=== PATIENT | female | born 1950 | race Caucasian/White ===

== ENCOUNTER 2022-04-15 09:44 | Outpatient (REF) | payer OTHER, SELFPAY ==
[2022-04-15 12:03] LABS: Hematocrit 36.7 % (37.0-47.0); Hemoglobin 12.6 g/dl (12.0-16.0); Mean Corpuscular HGB Conc 34.3 g/dl (31.0-35.0); Mean Corpuscular Hemoglobin 31.3 pg (27.0-33.0); Mean Corpuscular Volume 91.3 fL (80.0-98.0); Mean Platelet Volume 10.4 fL (9.4-12.3); Platelet Count 271 X10*3/uL (160-400); Red Blood Count 4.02 X10*6/uL (4.20-5.50); Red Cell Distribution Width 12.9 % (11.0-16.0); White Blood Count 6.8 X10*3/uL (4.8-10.8)
[2022-04-15 12:23] LABS: Alanine Aminotransferase 55 U/L (0-31); Albumin Level 4.2 g/dL (3.5-5.0); Alkaline Phosphatase 70 U/L (39-117); Anion Gap 15 (12-20); Aspartate Amino Transferase 44 U/L (5-31); Bilirubin Total 1.1 mg/dL (0.0-1.0); Blood Urea Nitrogen 13 mg/dL (9-16); Calcium 9.9 mg/dL (8.4-10.2); Carbon Dioxide 26 mmol/L (22-29); Chloride 103 mmol/L (96-108); Cholesterol 196 mg/dL; Estimated Glomerular Filt Rate > 60; Glucose Fasting 126 mg/dL (60-99); HDL Cholesterol 51 mg/dL; LDL Cholesterol Calculated 123 mg/dl; Potassium 3.2 mmol/L (3.3-5.1); Sodium 141 mmol/L (135-145); Total Protein 7.3 g/dL (6.5-8.0); Triglycerides 114 mg/dL
[2022-04-15 12:36] LABS: TSH reflex Free T4 1.17 uIU/mL (0.32-4.0)
== END 2022-04-15 09:45 | disposition home or self-care (01) ==
LOC: HO.WFDLDS 09:44
PROVIDERS: Visit Provider Hospitalist
DX: Z00.00 Encounter for general adult medical examination without abnormal findings (principal); E04.1 Nontoxic single thyroid nodule
CPT/HCPCS: 36415; 80053; 80061; 84443; 85027

== ENCOUNTER 2022-08-04 16:25 | Outpatient (REF) | payer OTHER, SELFPAY ==
--- NOTE | ~2022-08-04 | US_ITS ---
EXAMINATION: US THYROID CLINICAL INFORMATION: Nontoxic single thyroid nodule. COMPARISON: None. TECHNIQUE: Linear transducer grayscale and color Doppler examination with attention to the region of the thyroid. FINDINGS: SIZE: Measurements of the thyroid lobes and nodules are given in sagittal, anteroposterior and transverse dimensions respectively. Right Thyroid Lobe: 5.8 x 2.7 x 2.1 cm, volume 17.2 mL. Parenchyma: The gland echotexture is heterogeneous. Thyroid vascularity is normal. Left Thyroid Lobe: 4.1 x 1.9 x 1.7 cm, volume 6.9 mL. Parenchyma: The gland echotexture is heterogeneous. Thyroid vascularity is normal. Isthmus: 0.3 cm in maximum AP dimension. Estimated total number of nodules greater than or equal to 1 cm: 1. Drying Equipment Operator nodules are described as follows: 1. Location: Right upper pole. Size: 2.1 x 1.4 x 1.5 cm, volume 2.4 mL. Nodule characteristics: Composition: 2 Echogenicity: 1 Shape: 0 Margins: 0 Echogenic Foci: 0 ACR TI-RADS total points: 3 ACR TI-RADS category: 3 No additional nodules seen. NODES: No lymphadenopathy is seen in the tissue surrounding the thyroid gland. US/US thyroid IMPRESSION: 1. Solitary nodule upper pole right lobe, nonsuspicious. 2. Enlarged and heterogeneous right thyroid lobe. Heterogeneous left thyroid lobe. ACR TI-RADS RECOMMENDATION REFERENCE: Ultrasound-guided fine-needle aspiration, followup ultrasound, no further follow up. * TR1 (0 point) and TR 2 (2 points): No FNA or follow up * TR3 (3 points): FNA if more than or equal to 2.5 cm in maximum dimension, followup ultrasound in 1, 3 and 5 years if 1.5 to 2.4 cm in maximum dimension. * TR4 (4-6 points): FNA if more than or equal to 1.5 cm in maximum dimension, followup ultrasound in 1, 2, 3 and 5 years if 1 to 1.4 cm in maximum dimension. * TR5 (more than or equal to 7 points): FNA if more than or equal to 1 cm in maximum dimension, followup ultrasound every year for 5 years if 0.5 to 0.9 cm in maximum dimension. * TR3, TR4 or TR5 nodules that are below the size threshold for follow up receive no follow up.
== END 2022-08-04 16:26 | disposition home or self-care (01) ==
LOC: HO.US 16:25
PROVIDERS: PCP Hospitalist; Visit Provider Hospitalist
DX: E04.1 Nontoxic single thyroid nodule (principal)
CPT/HCPCS: 76536

== ENCOUNTER 2022-09-01 08:43 | Outpatient (REF) | payer MEDICARE, SELFPAY ==
[2022-09-01 11:19] LABS: Free T4 (Free Thyroxine) 1.16 ng/dL (0.71-1.85); Thyroid Stimulating Hormone 0.79 uIU/mL (0.32-4.0)
== END 2022-09-01 08:44 | disposition home or self-care (01) ==
LOC: HO.LAB 08:43
PROVIDERS: PCP Hospitalist; Visit Provider Internal Medicine
DX: E04.1 Nontoxic single thyroid nodule (principal)
CPT/HCPCS: 36415; 84439; 84443; 99202

== ENCOUNTER 2023-02-12 08:57 | Outpatient (REF) | payer MEDICARE, SELFPAY ==
--- NOTE | 2023-02-12 09:25 | P.BOP_ITS ---
Brief Operative Note Date of Service: 02/12/23 Pre-op diagnosis: Goiter Procedure: EXAMINATION: US THYROID CLINICAL INFORMATION: Multinodular Thyroid COMPARISON: Prior TECHNIQUE: Linear transducer mcleod-scale and color Doppler examination with attention to the region of the thyroid. FINDINGS: SIZE: Measurements of the thyroid lobes and nodules are given in sagittal, anteroposterior and transverse dimensions respectively. Right Thyroid Lobe: 2.0 x 4.04 x 2.45 cm, volume 10.4 mL. Parenchyma: The gland echotexture is diffusely heterogenous. Thyroid vascularity is mildly increased. Left Thyroid Lobe: 5.4 x 2.8 x 3.2 cm, volume 25.6 mL. Parenchyma: The gland echotexture is diffusely heterogenous. Thyroid vascularity is mildly increased. Isthmus: 0.4 cm in maximum AP dimension. There are no nodules visualized. The gland is diffusely heterogenous with multiple pseudnodules, but no true nodules identified. NODES: No lymphadenopathy is seen in the tissue surrounding the thyroid gland. Surgeon: Zoe El, DO Was an Pipe Finisher used for this Procedure?: No Estimated blood loss (mL): 0
== END 2023-02-12 08:58 | disposition home or self-care (01) ==
LOC: HO.US 08:57
PROVIDERS: Visit Provider Internal Medicine
DX: E04.1 Nontoxic single thyroid nodule (principal)
CPT/HCPCS: 76536

== ENCOUNTER → 2023-02-12 08:57 | Outpatient (BNV) | payer MEDICARE, SELFPAY | PROVIDERS: Visit Provider Internal Medicine | DX: E04.2 Nontoxic multinodular goiter (principal) | CPT/HCPCS: 76536 ==

== ENCOUNTER 2023-02-25 08:35 | Outpatient (AMB) | payer MEDICARE, SELFPAY ==
--- NOTE | 2023-02-25 08:35 | MHC.OFFVIS ---
Intake Intake Visit Reasons: FNA Results Allergies lisinopril Adverse Reaction (Mild, Verified 02/25/23 08:59) Cough Medication List - Last Reconciled 02/25/23 by Zoe El DO albuterol sulfate 90 mcg/actuation 2 puffs inhalation Q4-6H PRN 1 month cetirizine 10 mg PO DAILY fluoxetine 20 mg PO BID hydroxyzine HCl 25 mg PO TID PRN 30 days waeevqlbbu-yxfpygvsk-pponmeyvl 40-5-25 mg 1 tab PO DAILY HPI HPI Comments History of Present Illness Details 71 YO F with a recently diagnosed thyroid nodule who is seen in consultation for multinodular thyroid at the request of PCP. Was initially diagnosed with multinodular thyroid in Jul 2022 with thyroid US revealing what was read as a solitary 2.1 cm RUP nodule. This US was completed because she felt her neck was looking slightly enlarged. I repeated her thyroid US myself 02/12/2023 and this revealed a diffusely heterogenous thyroid gland with no true nodules, only pseudonodules. She currently denies any dysphagia or vocal hoarseness. She denies any compressive symptoms. She denies any symptoms of hyper or hypothyroidism. Denies any history of head or neck irradiation. Denies any family history of thyroid cancer. 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 No indication for FNA biopsy at this time. She will F/U with her PCP from here on, but if a need for Endocrine evaluation arises in the future we would be happy to see her back. All of her questions were answered. She is in agreement with this plan of care. I spent 20 minutes in reviewing the record, seeing the patient and documenting in the medical record, including 5 minutes on the phone with the Patient. Telehealth Telehealth Location of provider rendering services: practice address Location of patient: address on file Patient Identification confirmed using: Name, : Yes Telehealth method: voice only Patient verbally consented to treatment: Yes Patient verbally consented to billing insurance company: Yes Patient informed of any privacy concerns related to visit: Yes Coding Level of Care Code Tele Est Pt Level 3 (41960) Diagnoses Thyroid nodule E04.1
== END 2023-02-25 09:03 | disposition home or self-care (01) ==
LOC: HO.ENCR 08:35
PROVIDERS: PCP Hospitalist; Visit Provider Internal Medicine
DX: E04.1 Nontoxic single thyroid nodule (principal)
CPT/HCPCS: G2252

== ENCOUNTER → 2023-02-25 08:35 | Outpatient (BNVA) | payer MEDICARE, SELFPAY | PROVIDERS: PCP Hospitalist; Visit Provider Internal Medicine ==

== ENCOUNTER 2023-03-27 13:55 | Outpatient (REF) | payer MEDICARE, SELFPAY ==
[2023-03-27 14:54] LABS: Hematocrit 37.8 % (37.0-47.0); Mean Corpuscular HGB Conc 34.4 g/dl (31.0-35.0); Mean Corpuscular Hemoglobin 31.5 pg (27.0-33.0); Mean Corpuscular Volume 91.5 fL (80.0-98.0); Mean Platelet Volume 10.6 fL (9.4-12.3); Platelet Count 282 X10*3/uL (160-400); Red Blood Count 4.13 X10*6/uL (4.20-5.50); Red Cell Distribution Width 12.8 % (11.0-16.0); White Blood Count 9.8 X10*3/uL (4.8-10.8)
[2023-03-27 16:18] LABS: Alanine Aminotransferase 19 U/L (0-31); Albumin Level 4.2 g/dL (3.5-5.0); Alkaline Phosphatase 72 U/L (39-117); Anion Gap 16 (12-20); Aspartate Amino Transferase 16 U/L (5-31); Bilirubin Total 0.9 mg/dL (0.0-1.0); Blood Urea Nitrogen 22 mg/dL (9-16); Calcium 9.9 mg/dL (8.4-10.2); Carbon Dioxide 23 mmol/L (22-29); Chloride 105 mmol/L (96-108); Estimated Glomerular Filt Rate > 60; Glucose Fasting 94 mg/dL (60-99); Potassium 2.7 mmol/L (3.3-5.1); Sodium 141 mmol/L (135-145)
[2023-03-30 12:04] LABS: TS Negative Control Passed; TS Panel A 0; TS Panel B 0; TS Positive Control Passed; TSpotTB Negative (Negative)
== END 2023-03-27 13:56 | disposition home or self-care (01) ==
LOC: HO.LAB 13:55
PROVIDERS: PCP Nurse Practitioner Family; Visit Provider Nurse Practitioner Family
DX: Z00.00 Encounter for general adult medical examination without abnormal findings (principal); Z11.1 Encounter for screening for respiratory tuberculosis; I10 Essential (primary) hypertension
CPT/HCPCS: 36415; 80053; 85027; 86481

== ENCOUNTER 2023-04-24 10:46 | Outpatient (AMB) | payer MEDICARE, SELFPAY ==
[2023-04-24 10:57] VITALS: BP 124/64; PULSE 83; RESP 12; TEMP 36.2; O2SAT 99; BMI 32.1
--- NOTE | 2023-04-24 10:57 | MHC.PC.OV ---
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 Patient states that she was told that she would get help to get a piece of hearing aid out her ear. Patient states that she has been having problem with her right heel and has been feeling pain. Patient states that she would like refill on olmesartan. Patient would like to change fluoxetine to another alternative. Microarray Analyst Required: No Accompanied by: Self / Same As Patient Allergies lisinopril Adverse Reaction (Mild, Verified 04/24/23 11:08) Cough Tobacco use date assessed: 04/24/23 Fall risk assessment: No Falls in past year Last assessed Fall Risk: 04/24/23 Dental Screening Dental Screen Date: 04/24/23 Did you have a dental visit in the last 12 months?: No Did you have a dental problem in the last 6 months where you did not have access to dental care?: Yes Was dental information given to patient?: Yes HPI HPI Comments History of Present Illness Details 72-year-old female presents for anxiety and depression follow-up. She is on fluoxetine and hydroxyzine. Her hydroxyzine have been on hold since earlier this month due to concerns for interaction with potassium chloride was prescribed for recently low potassium of 2.7. 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 She has been taking fluoxetine as prescribed, however, she states the medication is no longer as effective. She notes she has been taking fluoxetine 40 mg daily in the morning. She has a plastic tip of hearing aid lodged in her right ear. She states she wants for hearing test for new hearing aids and was told she needs to get the object removed from a ear before a hearing test can not be performed. She requests removal of the object from her ear. She notes that her last colonoscopy was almost 9 years ago: Normal. She declines colonoscopy in but is willing to do Cologuard test. 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 1. Little interest or pleasure in doing things: more than half the days 2. Feeling down, depressed, or hopeless: more than half the days 3. Trouble falling or staying asleep, or sleeping too much: not at all 4. Feeling tired or having little energy: not at all 5. Poor appetite or overeating: not at all 6. Feeling bad about yourself - or that you are a failure or have let yourself or your family down: more than half the days 7. Trouble concentrating on things, such as reading the newspaper or watching television: more than half the days 8. Moving or speaking so slowly that other people could have noticed. Or the opposite - being so fidgety or restless that you have been moving around a lot more than usual: not at all 9. Thoughts that you would be better off or of hurting yourself in some way: not at all Total score: 8 Depression Screening Interpretation: Positive Depression Screening Follow-up: Existing condition, In treatment, Change in Medication and Community Mental Health Worker F/U Source: Developed by Drs. Lucho London, Randa Keith, Bassem Bonds and colleagues, with an educational vianca from [employer] AUDIT C Alcohol Use Questionnaire (AUDIT-C) 1. How often do you have a drink containing alcohol?: Never 3. How often do you have six or more drinks on one occasion?: Never Total Score: 0 CORIE-7 AMB Questionnaire CORIE-7 Date CORIE - 7 assessed: 04/24/23 Feeling nervous, anxious, or on edge: 2 = More than half the days Not being able to stop or control worryin = More than half the days Worrying too much about different things: 2 = More than half the days Trouble relaxin = More than half the days Being so restless that it is hard to sit still: 2 = More than half the days Becoming easily annoyed or irritable: 0 = Not at all Feeling afraid as if something awful might happen: 2 = More than half the days Total COIRE-7 score (0-4 normal; 5-9 mild; 10-14 moderate; 15-21 severe): 12 Source: Developed by Drs. Lucho London, Randa Keith, Bassem Bonds and colleagues, with an educational vianca from [employer] ACT Questionnaire In the past 4 weeks, how much of the time did your asthma keep you from getting as much done at work, school or at home?: None of the time During the past 4 weeks, how often have you had shortness of breath?: Not at all During the past 4 weeks, how often did your asthma symptoms wake you up at night or earlier than usual in the morning?: Not at all During the past 4 weeks, how often have you had to use your rescue inhaler or nebulizer medication?: Not at all How would you rate your asthma control during the past 4 weeks?: Well controlled Score: 24 Review of Systems Const Details: Const Denies chills, Denies fatigue, Denies fever(s), Denies headache(s) and Denies weakness ENT Denies dizziness and Denies headache(s) Card Denies chest pain, Denies lightheadedness, Denies dyspnea and Denies other (Palpitations) Resp Denies cough, Denies dyspnea, Denies wheezing and Denies other ( shortness of breath) GI Denies abdominal pain, Denies melena, Denies hematochezia, Denies change in bowel habits, Denies dyspepsia and Denies nausea Denies hematuria and Denies dysuria Musc Denies abnormal gait, Denies myalgias, Denies arthralgias, Denies numbness and Denies tingling Skin/Breast Denies rash, Denies unusual bruising and Denies wounds Neuro Denies abnormal gait, Denies dizziness, Denies headache(s), Denies memory loss, Denies numbness, Denies Sensory deficit (Neuro), Denies tingling and Denies weakness Psych Reports anxiety, Reports depression, Denies memory loss Endo Denies cold intolerance, Denies fatigue, Denies heat intolerance, Denies polydipsia and Denies polyuria Aller/Immun Denies wheezing Physical exam (Primary Care) Vital Signs: Last Vital Signs Temp 97.2 F 04/24/23 10:57 Pulse 83 04/24/23 10:57 Resp 12 04/24/23 10:57 BP 124/64 04/24/23 10:57 Pulse Ox 99 04/24/23 10:57 Oxygen Delivery Method Room Air 04/24/23 10:57 BMI result Body Mass Index 32.1 Tobacco/Smoking Status: Tobacco use Status Tobacco use date assessed 04/24/23 04/24/23 11:12 Patient Tobacco Use Status Never used Tobacco 04/24/23 11:12 e-Cigarette/Vaping Use Never Used 04/24/23 11:12 PHQ-9: PHQ-9 Score PHQ-9: Total score 8 04/24/23 11:22 Depression Screening Interpretation: Positive Depression Screening Follow-up: Existing condition, In treatment, Change in Medication and Community Mental Health Worker F/U Const Other: General: no acute distress and well developed Nutritional Appearance: well nourished Orientation/consciousness: patient oriented x3 HENMT Head is normocephalic Left ear canal and TM is normal. Small orange plastic object noted in the right ear canal, obstructing the TM, no erythema effusion, or overt infection Nasal turbinates and oropharynx are pink and moist Sinuses are nontender with palpation No auricular or cervical lymphadenopathy Eyes General: appearance normal, both eyes and all related structures Pupils: Equal, round and reactive pupils present EOM: EOMs intact bilaterally Resp Effort & Inspection: normal respiratory effort Auscultation: clear to auscultation bilaterally Cardio Rate: regular rate Rhythm: regular rhythm Heart sounds: S1 normal heart sound present, S2 normal heart sound present, no gallops, no murmurs and no rubs GI Palpation (GI): No Abdominal aortic bruit present, Soft to palpation, nontender, No hepatosplenomegaly present and No Rebound tenderness present Auscultation: normal bowel sounds General: Yes no CVA tenderness Back/Spine/Pelvis Back: no CVA tenderness Cervical Spine: cervical ROM normal and No Cervical spine tenderness Thoracic/Lumbar Spine: thoraco-lumbar ROM normal, No pain with thoraco-lumbar ROM, No thoracic spinal tenderness and No lumbar spinal tenderness Extrem General: Yes normal to inspection, No edema and No calf tenderness Skin General: warm and dry. Normal skin color. Normal skin turgor Lesions: no lesions Rashes: no rashes Trauma: no lacerations or abrasions Wounds: no wounds Nails: normal Neuro General: patient oriented x3, gait normal and no focal neuro deficit Cranial nerves: Yes Equal, round and reactive pupils present Cognition (Neuro): normal cognition Gait exam (Neuro): Normal gait present Sensory Exam: No Sensory deficit (Neuro) Psych Appearance: grossly normal Affect: normal affect Attitude: cooperative Thought process: Normal thought process present Assessment and Plan Assessment & Plan (1) Anxiety with depression: Code(s): F41.8 - Other specified anxiety disorders Plan: PHQ-9 and CORIE-7 scores revealed mild depression and moderate anxiety respectively Fluoxetine increased to 30 mg twice daily. Advised to take in the morning and afternoon The community navigator informed to refer patient for behavioral therapy Routine exercise encouraged Follow-up in 2 weeks or return sooner with worsening or new symptoms Verbalized understanding and agreed with treatment plan. (2) Hypokalemia: Code(s): E87.6 - Hypokalemia Plan: Recent potassium was low, 2.7. She was prescribed potassium chloride which she has been taking since earlier this month Will recheck potassium level today Advised to continue to take potassium chloride as prescribed Will review lab results and make changes to her care plan if warranted Verbalized understanding and agreed with treatment plan. (3) Hypertension: Code(s): I10 - Essential (primary) hypertension Plan: Blood pressure is 124/64, within goal of less than 140/90 Continue to take pqhsvxomqk-uilnfftlvh-dxotuwdnwqvcqltkbaj as prescribed Low-sodium diet encouraged Will continue to monitor Verbalized understanding and agreed with the treatment plan. (4) Foreign body of ear, right: Code(s): T16.1XXA - Foreign body in right ear, initial encounter Qualifiers: Encounter type: subsequent encounter Qualified Code(s): T16.1XXD - Foreign body in right ear, subsequent encounter Plan: Small orange plastic object noted in the right ear canal, obstructing the TM, no erythema effusion, or overt infection; appears to be the plastic covering of the hearing aid tip. Advised to call and schedule an appointment for hearing test so she can be fitted for new hearing aids Return with symptoms or concerns Verbalized understanding and agreed with treatment plan. (5) At risk of fracture due to osteoporosis: Code(s): M81.0 - Age-related osteoporosis without current pathological fracture; Z91.89 - Other specified personal risk factors, not elsewhere classified Plan: She states that the last bone density scan was over 2 years ago: Normal DEXA scan ordered. Patient will be notified to schedule an appointment for the procedure. (6) Colon cancer screening: Code(s): Z12.11 - Encounter for screening for malignant neoplasm of colon Plan: She notes that her last colonoscopy was almost 9 years ago: Normal. She declines colonoscopy in but is willing to do Cologuard test. Cologuard test ordered. Patient informed that she would receive the test kit at home with instructions to process and sent to the lab. She verbalized understanding and agreed with the plan. Orders: Orders Potassium Today E87.6 - Hypokalemia XR DEXA axial skeleton Today M81.0 - Age-related osteoporosis without current pathological fracture, Z12.11 - Encounter for screening for malignant neoplasm of colon, Z91.89 - Other specified personal risk factors, not elsewhere classified Referrals Nurse Navigator Referral F41.8 - Other specified anxiety disorders Cologuard Test Z12.11 - Encounter for screening for malignant neoplasm of colon Medications: New fluoxetine administer in the morning and at noon/midday. Take with fluoxetine 20 mg in the morning and afternoon to equal 30 mg twice daily. 10 mg PO BID 30 days 60 caps 3RF Coding Level of Care Code Est Pt Level 3 (06600) Diagnoses Anxiety with depression F41.8 Hypokalemia E87.6 Hypertension I10 Foreign body of right ear, subsequent encounter T16.1XXD Encounter type: subsequent encounter At risk of fracture due to osteoporosis M81.0; Z91.89 Colon cancer screening Z12.11
== END 2023-04-24 13:25 | disposition home or self-care (01) ==
PROVIDERS: PCP Nurse Practitioner Family; Visit Provider Nurse Practitioner Family
DX: I10 Essential (primary) hypertension (principal); F41.8 Other specified anxiety disorders; E87.6 Hypokalemia; T16.1XXD Foreign body in right ear, subsequent encounter; M81.0 Age-related osteoporosis without current pathological fracture; Z91.89 Other specified personal risk factors, not elsewhere classified; Z12.11 Encounter for screening for malignant neoplasm of colon
CPT/HCPCS: 99214

== ENCOUNTER 2023-04-24 12:12 | Outpatient (REF) | payer MEDICARE, SELFPAY ==
[2023-04-24 14:49] LABS: Potassium 4.1 mmol/L (3.3-5.1)
== END 2023-04-24 12:13 | disposition home or self-care (01) ==
LOC: HO.WFDLDS 12:12
PROVIDERS: Visit Provider Nurse Practitioner Family
DX: E87.6 Hypokalemia (principal)
CPT/HCPCS: 36415; 84132

== ENCOUNTER 2023-05-07 13:43 | Outpatient (REF) | payer MEDICARE, SELFPAY ==
--- NOTE | ~2023-05-07 | MM_ITS ---
EXAMINATION: BONE DENSITOMETRY CLINICAL INDICATION: Age-related osteoporosis without current pathological fracture. COMPARISON: This is the patient's baseline examination. TECHNIQUE: Using a [employer] DXA System (software version: 13.1) manufactured by [employer], dual-energy x-ray absorptiometry was performed of the lumbar spine and left hip. The images are of good technical quality. Summary results are attached. FINDINGS: LEFT FEMUR, NECK: BMD 1.074 g/cm2, Z-score 1.8, T-score 0.3, normal. LEFT FEMUR, TOTAL: BMD 1.194 g/cm2, Z-score 2.8, T-score 1.5, normal. AP SPINE L1-L4 (excluding L3): The data of L1-L4 has been changed to exclude the L3 vertebral body, because at this level may cause overestimation of lumbar spine density. BMD 1.365 g/cm2, Z-score 2.8, T-score 1.6, normal. IDENTIFIED RISK FACTORS: Menopause, hysterectomy, history of fracture (adult). HISTORY OF FRACTURE: Wrist. MEDICATIONS: Calcium supplements or multivitamin, vitamin D. MM/XR DEXA axial skeleton IMPRESSION: 1. DIAGNOSIS: Normal bone density based on the lowest T-score value of 0.3 in the femoral neck applying World Health Organization criteria. 2. 10-YEAR FRACTURE RISK PREDICTION, FRAX: According to the guidelines, FRAX calculation should only be performed on patients in the osteopenia bone density category. Therefore, FRAX was not performed on this patient. 3. Treatment Recommendations: NOF guidelines recommend consideration for treatment in postmenopausal women and men age 50 and older presenting with the following: -A hip or vertebral (clinical or morphometric) fracture. -T-score less than or equal to -2.5 at the femoral neck or spine after appropriate evaluation to exclude secondary causes. -Low bone mass at the hip or spine and a 10-year fracture probability by FRAX of greater than or equal to 3% for hip fracture or greater than or equal to 20% for major osteoporotic fracture based on the [place] adapted WHO algorithm. 4. Other Recommendations: All treatment decisions require clinical judgment and consideration of individual patient factors, including patient preferences, comorbidities, previous drug use, risk factors not captured in the FRAX model (e.g. frailty, falls, vitamin D deficiency, increased bone turnover, interval significant decline in bone density) and possible under or overestimation of fracture risk by FRAX. FUTURE SCAN RECOMMENDATION: People with diagnosed cases of osteoporosis or at high risk for fracture should have regular bone mineral density tests. For patients eligible for Medicare, routine testing is allowed once every 2 years. The testing frequency can be increased to one year for patients who have rapidly progressing disease, those who are receiving or discontinuing medical therapy to restore bone mass, or have additional risk factors.
== END 2023-05-07 13:44 | disposition home or self-care (01) ==
LOC: HO.MAMMO 13:43
PROVIDERS: PCP Nurse Practitioner Family; Visit Provider Nurse Practitioner Family
DX: Z13.820 Encounter for screening for osteoporosis (principal); M81.0 Age-related osteoporosis without current pathological fracture; Z91.89 Other specified personal risk factors, not elsewhere classified; Z78.0 Asymptomatic menopausal state
CPT/HCPCS: 77080

== ENCOUNTER 2023-05-08 15:00 | Outpatient (AMB) | payer MEDICARE, SELFPAY ==
[2023-05-08 15:06] VITALS: BP 124/60; PULSE 78; RESP 13; TEMP 36.5; O2SAT 98; BMI 31.8
--- NOTE | 2023-05-08 15:06 | A.OFFPC_ITS ---
Vital Signs 05/08/23 15:06 Height 5 ft 3 in Weight 179 lb 6 oz BMI 31.8 BP 124/60 Blood Pressure Location Lt brachial Position Sitting Respiration 13 Pulse 78 Pulse Source Pulse Oximeter Temp 97.7 F Temp Source Temporal Artery Scan Pulse Oximetry (%) 98 Oxygen Delivery Method Room Air Intake Visit Reasons: 2 wks anxiety, depression Intake Note: Patient would like to go over bone density if there is time. Case Supervisor Required: No Accompanied by: Self / Same As Patient Allergies lisinopril Adverse Reaction (Mild, Verified 05/08/23 15:23) Cough Medication List - Last Reconciled 05/08/23 by Jignesh He CNP albuterol sulfate 90 mcg/actuation 2 puffs inhalation Q4-6H PRN 1 month cetirizine 10 mg PO DAILY fluoxetine 20 mg PO BID fluoxetine 10 mg PO BID 30 days hydroxyzine HCl 25 mg PO TID PRN 30 days yamrwbelsu-tnwtqtnuw-qhwgyyjws 40-5-25 mg 1 tab PO DAILY potassium chloride ER 20 mEq PO DAILY 30 days Tobacco use date assessed: 04/24/23 Fall risk assessment: No Falls in past year Last assessed Fall Risk: 05/08/23 Dental Screening Dental Screen Date: 05/08/23 Did you have a dental visit in the last 12 months?: Yes Did you have a dental problem in the last 6 months where you did not have access to dental care?: No Was dental information given to patient?: Patient has dentist HPI HPI Comments History of Present Illness Details 72-year-old female presents for anxiety and depression follow-up. She was evaluated in the office 2 weeks ago for anxiety and depression. She reported worsened depression. She noted a fluoxetine 40 mg daily in the morning was no longer effective. Her hydroxyzine was on hold due to concerns for interaction with potassium chloride prescribed for low potassium. Fluoxetine was increased to 30 mg in the morning and 30 mg in the afternoon. She met with the community navigator who referred her to a therapist. She notes she has been taking fluoxetine as prescribed with significant improvement of her mood and anxiety. She states that her significant other he is currently [facility] a fall. She states that he is currently in a safe place and that she does not currently feel burdened to care for him. She states she did not establish care with a therapist and currently does not need one. She denies acute symptoms at this time. She notes that her last mammogram was several years ago: normal. 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 1. Little interest or pleasure in doing things: not at all 2. Feeling down, depressed, or hopeless: not at all 3. Trouble falling or staying asleep, or sleeping too much: not at all 4. Feeling tired or having little energy: not at all 5. Poor appetite or overeating: not at all 6. Feeling bad about yourself - or that you are a failure or have let yourself or your family down: not at all 7. Trouble concentrating on things, such as reading the newspaper or watching television: not at all 8. Moving or speaking so slowly that other people could have noticed. Or the opposite - being so fidgety or restless that you have been moving around a lot more than usual: not at all 9. Thoughts that you would be better off or of hurting yourself in some way: not at all Total score: 0 Depression Screening Interpretation: Negative Depression Screening Done: Yes Source: Developed by Drs. Lucho London, Randa Keith, Bassem Bonds and colleagues, with an educational vianca from [employer]. CORIE-7 AMB Questionnaire CORIE-7 Date CORIE - 7 assessed: 05/08/23 Feeling nervous, anxious, or on edge: 0 = Not at all Not being able to stop or control worryin = Not at all Worrying too much about different things: 0 = Not at all Trouble relaxin = Not at all Being so restless that it is hard to sit still: 0 = Not at all Becoming easily annoyed or irritable: 0 = Not at all Feeling afraid as if something awful might happen: 0 = Not at all Total CORIE-7 score (0-4 normal; 5-9 mild; 10-14 moderate; 15-21 severe): 0 Source: Developed by Drs. Lucho London, Randa Keith, Bassem Bonds and colleagues, with an educational vianca from [employer]. Review of Systems Const Details: Const Denies chills, Denies fatigue, Denies fever(s), Denies headache(s) and Denies weakness ENT Denies dizziness and Denies headache(s) Card Denies chest pain, Denies lightheadedness, Denies dyspnea and Denies other (Palpitations) Resp Denies cough, Denies dyspnea, Denies wheezing and Denies other ( shortness of breath) GI Denies abdominal pain, Denies melena, Denies hematochezia, Denies change in bowel habits, Denies dyspepsia and Denies nausea Denies hematuria and Denies dysuria Musc Denies abnormal gait, Denies myalgias, Denies arthralgias, Denies numbness and Denies tingling Skin/Breast Denies rash, Denies unusual bruising and Denies wounds Neuro Denies abnormal gait, Denies dizziness, Denies headache(s), Denies memory loss, Denies numbness, Denies Sensory deficit (Neuro), Denies tingling and Denies weakness Psych Denies anxiety, Denies depression, Denies memory loss Endo Denies cold intolerance, Denies fatigue, Denies heat intolerance, Denies polydipsia and Denies polyuria Aller/Immun Denies wheezing Physical exam (Primary Care) Vital Signs: Last Vital Signs Temp 97.7 F 05/08/23 15:06 Pulse 78 05/08/23 15:06 Resp 13 05/08/23 15:06 BP 124/60 05/08/23 15:06 Pulse Ox 98 05/08/23 15:06 Oxygen Delivery Method Room Air 05/08/23 15:06 BMI result Body Mass Index 31.8 Tobacco/Smoking Status: Tobacco use Status Tobacco use date assessed 04/24/23 05/08/23 15:14 Patient Tobacco Use Status Never used Tobacco 05/08/23 15:14 e-Cigarette/Vaping Use Never Used 05/08/23 15:14 Depression Screening Interpretation: Negative Const Other: General: no acute distress and well developed Nutritional Appearance: well nourished Orientation/consciousness: patient oriented x3 HENMT Head: Yes normocephalic and Yes atraumatic Eyes General: appearance normal, both eyes and all related structures Pupils: Equal, round and reactive pupils present EOM: EOMs intact bilaterally Resp Effort & Inspection: normal respiratory effort Auscultation: clear to auscultation bilaterally Cardio Rate: regular rate Rhythm: regular rhythm Heart sounds: S1 normal heart sound present, S2 normal heart sound present, no gallops, no murmurs and no rubs GI Palpation (GI): No Abdominal aortic bruit present, Soft to palpation, nontender, No hepatosplenomegaly present and No Rebound tenderness present Auscultation: normal bowel sounds General: Yes no CVA tenderness Back/Spine/Pelvis Back: no CVA tenderness Cervical Spine: cervical ROM normal and No Cervical spine tenderness Thoracic/Lumbar Spine: thoraco-lumbar ROM normal, No pain with thoraco-lumbar ROM, No thoracic spinal tenderness and No lumbar spinal tenderness Extrem General: Yes normal to inspection, No edema and No calf tenderness Skin General: warm and dry. Normal skin color. Normal skin turgor Lesions: no lesions Rashes: no rashes Trauma: no lacerations or abrasions Wounds: no wounds Nails: normal Neuro General: patient oriented x3, gait normal and no focal neuro deficit Cranial nerves: Yes Equal, round and reactive pupils present Cognition (Neuro): normal cognition Gait exam (Neuro): Normal gait present Sensory Exam: No Sensory deficit (Neuro) Psych Appearance: grossly normal Affect: normal affect Attitude: cooperative Thought process: Normal thought process present Assessment and Plan Assessment & Plan (1) Anxiety with depression: Code(s): F41.8 - Other specified anxiety disorders (2) Breast cancer screening: Code(s): Z12.39 - Encounter for other screening for malignant neoplasm of breast Qualifiers: Breast cancer screening modality: mammogram Qualified Code(s): Z07.26 - Encounter for screening mammogram for malignant neoplasm of breast Plan: She notes that her last mammogram was several years ago: normal Mammogram ordered Orders: Orders MM screening mammo BI Today Z07.26 - Encounter for screening mammogram for malignant neoplasm of breast Medications: Resumed hydroxyzine HCl 25 mg PO TID 30 days PRN 90 tabs 1RF anxiety Patient Instructions: CORIE-7 and PHQ-9 scores are normal Patient reports significant improvement of her mood and anxiety symptoms She notes that her significant other is currently in a safe place and she does not feel burdened to provide care for him Advised to continue to take fluoxetine as prescribed. She is not currently on potassium chloride. Advise to esume taking hydroxyzine as prescribed Routine exercise encouraged Follow-up in 1 month or return sooner with symptoms or concerns Verbalized understanding and agreed with treatment plan. Patient recently had normal bone density scan. Results reviewed with the patient. Coding Level of Care Code Est Pt Level 3 (88848) Diagnoses Anxiety with depression F41.8 Encounter for screening mammogram for malignant neoplasm of breast Z07.26 Breast cancer screening modality: mammogram
== END 2023-05-08 15:45 | disposition home or self-care (01) ==
PROVIDERS: PCP Hospitalist; Visit Provider Nurse Practitioner Family
DX: F41.8 Other specified anxiety disorders (principal)
CPT/HCPCS: 99214

== ENCOUNTER 2023-06-01 13:19 | Outpatient (REF) | payer MEDICARE, SELFPAY ==
--- NOTE | ~2023-06-01 | MM_ITS ---
EXAMINATION: MM SCREENING DIGITAL BREAST TOMOSYNTHESIS, BILATERAL CLINICAL INFORMATION: Screening. Asymptomatic. COMPARISON: Mammography: There are no prior mammograms available for comparison. TECHNIQUE: Digital breast tomosynthesis is performed in both the craniocaudal and mediolateral oblique views along with computer-aided detection (CAD). Synthesized 2D images are generated from the tomosynthesis. FINDINGS: There are scattered areas of fibroglandular density (ACR BI-RADS breast composition Category b). There are grouped calcifications in the upper outer quadrant of the left breast. Elsewhere in the left breast and in the right breast there are scattered, coarse benign calcifications. In the right breast, there are no significant masses, abnormal calcifications, or other abnormalities. MM/MM tomosynthesis screening BI IMPRESSION: Grouped calcifications in the upper outer quadrant of the left breast warrant additional mammographic imaging with magnification. Benign calcifications right breast. No mammographic signs of malignancy right breast. ASSESSMENT: BI-RADS BI-RADS 0 - Incomplete: Needs additional Imaging. RECOMMENDATION: Additional views of the left breast. Radiology department staff will contact the patient for additional imaging. Additional Imaging required This examination should not preclude the clinical evaluation of a suspicious palpable abnormality. This patient's information was entered into a reminder system with a target due date for their next mammogram.
== END 2023-06-01 13:20 | disposition home or self-care (01) ==
LOC: HO.MAMMO 13:19
PROVIDERS: PCP Nurse Practitioner Family; Visit Provider Nurse Practitioner Family
DX: Z12.31 Encounter for screening mammogram for malignant neoplasm of breast (principal)
CPT/HCPCS: 77063; 77067

== ENCOUNTER → 2023-06-01 13:45 | Outpatient (BNV) | payer MEDICARE, SELFPAY | PROVIDERS: PCP Nurse Practitioner Family; Visit Provider Radiology Diagnostic Radiology | DX: Z12.31 Encounter for screening mammogram for malignant neoplasm of breast (principal) | CPT/HCPCS: 77063; 77067 ==

== ENCOUNTER 2023-06-08 13:07 | Outpatient (AMB) | payer MEDICARE, SELFPAY ==
--- NOTE | 2023-06-08 13:10 | MHC.PC.OV ---
Vital Signs 06/08/23 13:11 Height 5 ft 3 in Weight 182 lb BMI 32.2 BP 122/68 Blood Pressure Location Lt brachial Position Sitting Respiration 12 Pulse 70 Pulse Source Pulse Oximeter Pulse Oximetry (%) 96 Oxygen Delivery Method Room Air Intake Visit Reasons: 1 mos anxiety, depression Intake Note: Patient is here today to follow up on anxiety and depression. Allergies lisinopril Adverse Reaction (Mild, Verified 06/08/23 13:30) Cough Medication List - Last Reconciled 06/08/23 by Jignesh He CNP albuterol sulfate 90 mcg/actuation 2 puffs inhalation Q4-6H PRN 1 month cetirizine 10 mg PO DAILY fluoxetine 20 mg PO BID fluoxetine 10 mg PO BID 30 days hydroxyzine HCl 25 mg PO TID PRN 30 days fpzxkvzoik-xszxzqecu-azrdfwsgn 40-5-25 mg 1 tab PO DAILY potassium chloride ER 20 mEq PO DAILY 30 days Tobacco use date assessed: 06/08/23 Fall risk assessment: No Falls in past year Last assessed Fall Risk: 06/08/23 HPI HPI Comments History of Present Illness Details 72-year-old female presents for anxiety and depression follow-up. She admits to taking her medications as prescribed with controlled symptoms. She notes that her other half 3 days ago. She notes that she has been grieving well. She offers no complaints and denies acute symptoms at this time. 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 1. Little interest or pleasure in doing things: not at all 2. Feeling down, depressed, or hopeless: not at all 3. Trouble falling or staying asleep, or sleeping too much: not at all 4. Feeling tired or having little energy: not at all 5. Poor appetite or overeating: not at all 6. Feeling bad about yourself - or that you are a failure or have let yourself or your family down: not at all 7. Trouble concentrating on things, such as reading the newspaper or watching television: not at all 8. Moving or speaking so slowly that other people could have noticed. Or the opposite - being so fidgety or restless that you have been moving around a lot more than usual: not at all 9. Thoughts that you would be better off or of hurting yourself in some way: not at all Total score: 0 Depression Screening Interpretation: Negative Depression Screening Done: Yes Source: Developed by Drs. Lucho London, Randa Keith, Bassem Bonds and colleagues, with an educational vianca from [employer] [facility] [employer]. Thrive Questionnaire Date Thrive assessed: 06/08/23 I am a: Patient What is your living situation today?: I have a steady place to live Within the past 12 months, did the food you bought not last and you didn't have the money to get more?: Never true Within the past 12 months, did you worry whether your food would run out before you got money to buy more?: Never true Do you have trouble paying for medicines?: No Do you have trouble getting transportation to medical appointments?: No Do you have trouble paying your heating and electricity bill?: No Do you have trouble taking care of your child, family member or friend?: No Do you have trouble with day-to-day activities such as bathing, preparing meals, shopping, managing finances, etc.?: No Are you currently unemployed and looking for a job?: Yes Are you interested in more education?: No CORIE-7 AMB Questionnaire CORIE-7 Date CORIE - 7 assessed: 06/08/23 Feeling nervous, anxious, or on edge: 0 = Not at all Not being able to stop or control worryin = Not at all Worrying too much about different things: 0 = Not at all Trouble relaxin = Not at all Being so restless that it is hard to sit still: 0 = Not at all Becoming easily annoyed or irritable: 0 = Not at all Feeling afraid as if something awful might happen: 0 = Not at all Total CORIE-7 score (0-4 normal; 5-9 mild; 10-14 moderate; 15-21 severe): 0 Source: Developed by Drs. Lucho London, Randa Keith, Bassem Bonds and colleagues, with an educational vianca from [employer] [facility] [employer]. Review of Systems Const Details: Const Denies chills, Denies fatigue, Denies fever(s), Denies headache(s) and Denies weakness ENT Denies dizziness and Denies headache(s) Card Denies chest pain, Denies lightheadedness, Denies dyspnea and Denies other (Palpitations) Resp Denies cough, Denies dyspnea, Denies wheezing and Denies other ( shortness of breath) GI Denies abdominal pain, Denies melena, Denies hematochezia, Denies change in bowel habits, Denies dyspepsia and Denies nausea Denies hematuria and Denies dysuria Musc Denies abnormal gait, Denies myalgias, Denies arthralgias, Denies numbness and Denies tingling Skin/Breast Denies rash, Denies unusual bruising and Denies wounds Neuro Denies abnormal gait, Denies dizziness, Denies headache(s), Denies memory loss, Denies numbness, Denies Sensory deficit (Neuro), Denies tingling and Denies weakness Psych Denies anxiety, Denies depression, Denies memory loss Endo Denies cold intolerance, Denies fatigue, Denies heat intolerance, Denies polydipsia and Denies polyuria Aller/Immun Denies wheezing Physical exam (Primary Care) Vital Signs: Last Vital Signs Pulse 70 06/08/23 13:11 Resp 12 06/08/23 13:11 BP 122/68 06/08/23 13:11 Pulse Ox 96 06/08/23 13:11 Oxygen Delivery Method Room Air 06/08/23 13:11 BMI result Body Mass Index 32.2 Tobacco/Smoking Status: Tobacco use Status Tobacco use date assessed 06/08/23 06/08/23 13:18 Patient Tobacco Use Status Never used Tobacco 06/08/23 13:18 e-Cigarette/Vaping Use Never Used 06/08/23 13:18 PHQ-9: PHQ-9 Score PHQ-9: Total score 0 06/08/23 13:23 Depression Screening Interpretation: Negative Thrive Assessment: Date of Thrive Assessment Date Thrive assessed 06/08/23 06/08/23 13:26 Const Other: General: no acute distress and well developed Nutritional Appearance: well nourished Orientation/consciousness: patient oriented x3 HENMT Head: Yes normocephalic and Yes atraumatic Eyes General: appearance normal, both eyes and all related structures Pupils: Equal, round and reactive pupils present EOM: EOMs intact bilaterally Resp Effort & Inspection: normal respiratory effort Auscultation: clear to auscultation bilaterally Cardio Rate: regular rate Rhythm: regular rhythm Heart sounds: S1 normal heart sound present, S2 normal heart sound present, no gallops, no murmurs and no rubs GI Palpation (GI): No Abdominal aortic bruit present, Soft to palpation, nontender, No hepatosplenomegaly present and No Rebound tenderness present Auscultation: normal bowel sounds General: Yes no CVA tenderness Back/Spine/Pelvis Back: no CVA tenderness Cervical Spine: cervical ROM normal and No Cervical spine tenderness Thoracic/Lumbar Spine: thoraco-lumbar ROM normal, No pain with thoraco-lumbar ROM, No thoracic spinal tenderness and No lumbar spinal tenderness Extrem General: Yes normal to inspection, No edema and No calf tenderness Skin General: warm and dry. Normal skin color. Normal skin turgor Neuro General: patient oriented x3, gait normal and no focal neuro deficit Cranial nerves: Yes Equal, round and reactive pupils present Cognition (Neuro): normal cognition Gait exam (Neuro): Normal gait present Sensory Exam: No Sensory deficit (Neuro) Psych Appearance: grossly normal Affect: normal affect Attitude: cooperative Thought process: Normal thought process present Assessment and Plan Assessment & Plan (1) Anxiety with depression: Code(s): F41.8 - Other specified anxiety disorders Plan: PHQ-9 and CORIE-7 scores are normal She notes that her mood is significantly improved Her other half recently and she states she is grieving well Continue with current treatment regimen Routine exercise encouraged Follow-up in 3 months or return sooner with worsening or new symptoms Verbalized understanding and agreed with treatment plan. (2) Hypertension: Code(s): I10 - Essential (primary) hypertension Plan: Blood pressure is 122/68, within goal of less than 140/90 Continue with current treatment regimen Low-sodium diet encouraged Follow-up in 3 months Verbalized understanding and agreed with the treatment plan. Coding Level of Care Code Est Pt Level 3 (80092) Diagnoses Anxiety with depression F41.8 Hypertension I10
[2023-06-08 13:11] VITALS: BP 122/68; PULSE 70; RESP 12; O2SAT 96; BMI 32.2
== END 2023-06-08 13:57 | disposition home or self-care (01) ==
PROVIDERS: PCP Nurse Practitioner Family; Visit Provider Nurse Practitioner Family
DX: F41.8 Other specified anxiety disorders (principal); I10 Essential (primary) hypertension
CPT/HCPCS: 99213

== ENCOUNTER 2023-07-13 13:21 | Outpatient (REF) | payer MEDICARE, SELFPAY ==
--- NOTE | ~2023-07-13 | MM_ITS ---
EXAMINATION: MM DIAGNOSTIC DIGITAL BREAST TOMOSYNTHESIS, LEFT CLINICAL INFORMATION: The patient's callback from 06/01/2023 screening mammography for further evaluation of calcifications in the upper outer quadrant of the left breast. COMPARISON: Mammography: This study is compared with prior mammography from May 2023. TECHNIQUE: Digital breast tomosynthesis is performed. 2D images are generated from the tomosynthesis. The following views are obtained: Magnification imaging of the left breast was performed. FINDINGS: There are scattered areas of fibroglandular density (ACR BI-RADS breast composition Category b). Additional views show no significant mass, architectural abnormality, or abnormal calcifications. The left breast calcifications in question coarse and benign. MM/MM tomosynthesis added views L IMPRESSION: Benign calcifications left breast. ASSESSMENT: BI-RADS BI-RADS 2 - Benign Findings RECOMMENDATION: 1 year F/U Results were provided to the patient at time of visit by the technologist. This patient's information was entered into a reminder system with a target due date for their next mammogram.
== END 2023-07-13 13:22 | disposition home or self-care (01) ==
LOC: HO.MAMMO 13:21
PROVIDERS: PCP Nurse Practitioner Family; Visit Provider Nurse Practitioner Family
DX: R92.1 Mammographic calcification found on diagnostic imaging of breast (principal)
CPT/HCPCS: 77061; 77065

== ENCOUNTER → 2023-07-13 13:30 | Outpatient (BNV) | payer MEDICARE, SELFPAY | PROVIDERS: PCP Nurse Practitioner Family; Visit Provider Radiology Diagnostic Radiology | DX: R92.1 Mammographic calcification found on diagnostic imaging of breast (principal) | CPT/HCPCS: 77065; G0279 ==

== ENCOUNTER 2023-09-07 12:20 | Outpatient (AMB) | payer MEDICARE, SELFPAY ==
--- NOTE | 2023-09-07 12:30 | MHC.PC.OV ---
Vital Signs 09/07/23 12:33 Height 5 ft 3 in Weight 186 lb BMI 32.9 BP 121/72 Pulse 73 Pulse Source Pulse Oximeter Intake Visit Reasons: 3 mos HTN, anxiety, depression Intake Note: Patient is here with hypertension, anxiety, and depression. Patient needs letter stating she needs her dogs for protection. Allergies lisinopril Adverse Reaction (Mild, Verified 09/07/23 12:51) Cough Medication List - Last Reconciled 09/07/23 by Jignesh He CNP albuterol sulfate 90 mcg/actuation 2 puffs inhalation Q4-6H PRN 1 month cetirizine 10 mg PO DAILY fluoxetine 20 mg PO BID hydroxyzine HCl 25 mg PO TID PRN 30 days kuivootpal-hgcokbkvt-dauadsoxp 40-5-25 mg 1 tab PO DAILY potassium chloride ER 20 mEq PO DAILY 30 days Tobacco use date assessed: 09/07/23 Fall risk assessment: No Falls in past year Last assessed Fall Risk: 09/07/23 Dental Screening Dental Screen Date: 09/07/23 Did you have a dental visit in the last 12 months?: Yes Did you have a dental problem in the last 6 months where you did not have access to dental care?: No Was dental information given to patient?: Patient has dentist HPI HPI Comments History of Present Illness Details 72-year-old female presents for hypertension, anxiety, and depression follow-up She admits to taking fluoxetine 20 mg daily instead of 30 mg twice daily with significant improvement. She takes her other meds as prescribed. No adverse medication reactions. She offers no complaints and denies acute symptoms at this time She notes that she has two service dogs for hearing impairment and requests a letter noting she may have the dogs with her at all time REPLACED BY [facility] Medical History Carpal tunnel syndrome, right Hypertension Carpal tunnel syndrome on both sides Asthma Surgical History History of bladder surgery Hx of hysterectomy History of appendectomy Family History Brother Diabetes Mother Mouth cancer Father Lung cancer Other No family history of mental disorder Social History Housing: House Patient Tobacco Use Status: Never used Tobacco e-Cigarette/Vaping Use: Never Used Second Hand Smoke Exposure: No service: No 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 1. Little interest or pleasure in doing things: not at all 2. Feeling down, depressed, or hopeless: not at all 3. Trouble falling or staying asleep, or sleeping too much: not at all 4. Feeling tired or having little energy: not at all 5. Poor appetite or overeating: not at all 6. Feeling bad about yourself - or that you are a failure or have let yourself or your family down: not at all 7. Trouble concentrating on things, such as reading the newspaper or watching television: not at all 8. Moving or speaking so slowly that other people could have noticed. Or the opposite - being so fidgety or restless that you have been moving around a lot more than usual: not at all 9. Thoughts that you would be better off or of hurting yourself in some way: not at all Total score: 0 Source: Developed by Drs. Lucho London, Randa Keith, Bassem Bonds and colleagues, with an educational vianca from [employer]. Thrive Questionnaire Date Thrive assessed: 06/08/23 CORIE-7 AMB Questionnaire CORIE-7 Date CORIE - 7 assessed: 09/07/23 Feeling nervous, anxious, or on edge: 0 = Not at all Not being able to stop or control worryin = Not at all Worrying too much about different things: 0 = Not at all Trouble relaxin = Not at all Being so restless that it is hard to sit still: 0 = Not at all Becoming easily annoyed or irritable: 0 = Not at all Feeling afraid as if something awful might happen: 0 = Not at all Total CORIE-7 score (0-4 normal; 5-9 mild; 10-14 moderate; 15-21 severe): 0 Source: Developed by Randa Camargo Kurt Kroenke and colleagues, with an educational vianca from [employer]. Review of Systems Const Details: Const Denies chills, Denies fatigue, Denies fever(s), Denies headache(s) and Denies weakness ENT Denies dizziness and Denies headache(s) Card Denies chest pain, Denies lightheadedness, Denies dyspnea and Denies other (Palpitations) Resp Denies cough, Denies dyspnea, Denies wheezing and Denies other ( shortness of breath) GI Denies abdominal pain, Denies melena, Denies hematochezia, Denies change in bowel habits, Denies dyspepsia and Denies nausea Denies hematuria and Denies dysuria Musc Denies abnormal gait, Denies myalgias, Denies arthralgias, Denies numbness and Denies tingling Skin/Breast Denies rash, Denies unusual bruising and Denies wounds Neuro Denies abnormal gait, Denies dizziness, Denies headache(s), Denies memory loss, Denies numbness, Denies Sensory deficit (Neuro), Denies tingling and Denies weakness Psych Denies anxiety, Denies depression, Denies memory loss Endo Denies cold intolerance, Denies fatigue, Denies heat intolerance, Denies polydipsia and Denies polyuria Aller/Immun Denies wheezing Physical exam (Primary Care) Vital Signs: Last Vital Signs Pulse 73 09/07/23 12:33 BP 121/72 09/07/23 12:33 BMI result Body Mass Index 32.9 Tobacco/Smoking Status: Tobacco use Status Tobacco use date assessed 09/07/23 09/07/23 12:43 Patient Tobacco Use Status Never used Tobacco 09/07/23 12:32 e-Cigarette/Vaping Use Never Used 09/07/23 12:32 PHQ-9: PHQ-9 Score PHQ-9: Total score 0 09/07/23 12:47 Thrive Assessment: Date of Thrive Assessment Date Thrive assessed 06/08/23 09/07/23 12:32 Const Other: General: no acute distress and well developed Nutritional Appearance: well nourished Orientation/consciousness: patient oriented x3 HENMT Head: Yes normocephalic and Yes atraumatic Eyes General: appearance normal, both eyes and all related structures Pupils: Equal, round and reactive pupils present EOM: EOMs intact bilaterally Resp Effort & Inspection: normal respiratory effort Auscultation: clear to auscultation bilaterally Cardio Rate: regular rate Rhythm: regular rhythm Heart sounds: S1 normal heart sound present, S2 normal heart sound present, no gallops, no murmurs and no rubs GI Palpation (GI): No Abdominal aortic bruit present, Soft to palpation, nontender, No hepatosplenomegaly present and No Rebound tenderness present Auscultation: normal bowel sounds General: Yes no CVA tenderness Back/Spine/Pelvis Back: no CVA tenderness Cervical Spine: cervical ROM normal and No Cervical spine tenderness Thoracic/Lumbar Spine: thoraco-lumbar ROM normal, No pain with thoraco-lumbar ROM, No thoracic spinal tenderness and No lumbar spinal tenderness Extrem General: Yes normal to inspection, No edema and No calf tenderness Skin General: warm and dry. Normal skin color. Normal skin turgor Neuro General: patient oriented x3, gait normal and no focal neuro deficit Cranial nerves: Yes Equal, round and reactive pupils present Cognition (Neuro): normal cognition Gait exam (Neuro): Normal gait present Sensory Exam: No Sensory deficit (Neuro) Psych Appearance: grossly normal Affect: normal affect Attitude: cooperative Thought process: Normal thought process present Assessment and Plan Assessment & Plan (1) Anxiety with depression: Code(s): F41.8 - Other specified anxiety disorders Plan: PHQ-9 and CORIE-7 scores are normal Continue to take fluoxetine 20 mg daily and hydroxyzine 25 mg 3 times daily Routine exercise encouraged Follow-up in 3 months for an extended physical exam Return sooner with symptoms or concerns Verbalized understanding and agreed with treatment plan Note given for service animals (2) Hypertension: Code(s): I10 - Essential (primary) hypertension Plan: Blood pressure is 121/72, within goal of less than 140/90 Continue current treatment regimen Low-sodium diet encouraged Will continue to monitor Verbalized understanding and agreed with the plan (3) Laboratory tests ordered as part of a complete physical exam (CPE): Code(s): Z00.00 - Encounter for general adult medical examination without abnormal findings Plan: Fasting labs ordered in preparation of a complete physical exam. Advised to fast for at least 10 hours before getting labs drawn. May drink water Verbalized understanding and agreed with treatment plan. Orders: Orders Lipid Panel Today Z00.00 - Encounter for general adult medical examination without abnormal findings TSH reflex Free T4 Today Z00.00 - Encounter for general adult medical examination without abnormal findings UA CC w/rflx Micro + Cult Today Z00.00 - Encounter for general adult medical examination without abnormal findings Coding Level of Care Code Est Pt Level 3 (32694) Diagnoses Anxiety with depression F41.8 Hypertension I10 Laboratory tests ordered as part of a complete physical exam (CPE) Z00.00
[2023-09-07 12:33] VITALS: BP 121/72; PULSE 73; BMI 32.9
== END 2023-09-07 13:19 | disposition home or self-care (01) ==
PROVIDERS: PCP Nurse Practitioner Family; Visit Provider Nurse Practitioner Family
DX: F41.8 Other specified anxiety disorders (principal); I10 Essential (primary) hypertension; Z00.00 Encounter for general adult medical examination without abnormal findings
CPT/HCPCS: 99213

== ENCOUNTER 2023-12-22 11:21 | Outpatient (AMB) | payer MEDICARE, SELFPAY ==
[2023-12-22 11:24] VITALS: BP 118/60; PULSE 79; RESP 14; TEMP 36.4; O2SAT 99; BMI 33.8
--- NOTE | 2023-12-22 11:24 | A.OFFPC_ITS ---
Vital Signs 12/22/23 11:24 Height 5 ft 3 in Weight 191 lb BMI 33.8 BP 118/60 Blood Pressure Location Rt brachial Position Sitting Respiration 14 Pulse 79 Pulse Source Pulse Oximeter Temp 97.5 F Temp Source Temporal Artery Scan Pulse Oximetry (%) 99 Oxygen Delivery Method Room Air Intake Visit Reasons: cpe - see comments Intake Note: Patient needs refill on hypertension medication and prozac. 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 Required: No Accompanied by: Self / Same As Patient Allergies lisinopril Adverse Reaction (Mild, Verified 12/22/23 11:54) Cough Medication List - Last Reconciled 12/22/23 by Jignesh He CNP albuterol sulfate 90 mcg/actuation 2 puffs inhalation Q4-6H PRN 1 month cetirizine 10 mg PO DAILY fluoxetine 20 mg PO DAILY 90 days hydroxyzine HCl 25 mg PO TID PRN 30 days ygvpkiqamd-pylwskmfh-psccboynb 40-5-25 mg 1 tab PO DAILY potassium chloride ER 20 mEq PO DAILY 30 days Tobacco use date assessed: 12/22/23 Fall risk assessment: No Falls in past year Last assessed Fall Risk: 12/22/23 Dental Screening Dental Screen Date: 12/22/23 Did you have a dental visit in the last 12 months?: Yes Did you have a dental problem in the last 6 months where you did not have access to dental care?: No Was dental information given to patient?: Patient has dentist HPI HPI Comments History of Present Illness Details 73-year-old female presents for an exten ded physical exam She has past medical history of hypertension, asthma, COPD, DIEGO (on cpap), obesity, anxiety, and depression She admits to taking her medications as prescribed without adverse reactions She states she has been making healthy dietary choices and walk a lot while working at the long-term She offers no complaints and denies acute symptoms at this She is followed by [facility] Last mammogram was on 07/13/2023: Benign findings Last DEXA scan was on 05/07/2023: Normal Last Colonoscopy was over 10 years: normal. Declines colonoscopy or Cologuard Pap smear test was over 10 years ago: normal. Requests a pap smear test She notes that she gets annual eye exam and is up-to-date She notes that she never been vaccinated for shingles or PNA. She declines these vaccines She is not up-to-date on the flu vaccine. She declines vaccination [facility] Medical History Carpal tunnel syndrome, right Hypertension Carpal tunnel syndrome on both sides Asthma Surgical History History of bladder surgery Hx of hysterectomy History of appendectomy Family History Brother Diabetes Mother Mouth cancer Father Lung cancer Other No family history of mental disorder Social History Household Members: None Housing: House Are you a primary child daycare worker to a significant other at home: No Do you presently have visiting nurse or other home services: No Alcohol intake: never Patient Tobacco Use Status: Never used Tobacco e-Cigarette/Vaping Use: Never Used Second Hand Smoke Exposure: No service: No 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 1. Little interest or pleasure in doing things: not at all 2. Feeling down, depressed, or hopeless: not at all 3. Trouble falling or staying asleep, or sleeping too much: not at all 4. Feeling tired or having little energy: not at all 5. Poor appetite or overeating: several days 6. Feeling bad about yourself - or that you are a failure or have let yourself or your family down: not at all 7. Trouble concentrating on things, such as reading the newspaper or watching television: not at all 8. Moving or speaking so slowly that other people could have noticed. Or the opposite - being so fidgety or restless that you have been moving around a lot more than usual: not at all 9. Thoughts that you would be better off or of hurting yourself in some way: not at all Total score: 1 Depression Screening Interpretation: Negative Depression Screening Done: Yes 29495 - PHQ-9 Billing: Yes Source: Developed by Drs. Lucho London, Randa B.WBassem Vora and colleagues, with an educational vianca from [employer]. Thrive Questionnaire Date Thrive assessed: 12/22/23 I am a: Patient What is your living situation today?: I have a steady place to live Within the past 12 months, did the food you bought not last and you didn't have the money to get more?: Never true Within the past 12 months, did you worry whether your food would run out before you got money to buy more?: Never true Do you have trouble paying for medicines?: No Do you have trouble getting transportation to medical appointments?: No Do you have trouble paying your heating and electricity bill?: No Do you have trouble taking care of your child, family member or friend?: No Do you have trouble with day-to-day activities such as bathing, preparing meals, shopping, managing finances, etc.?: No Are you currently unemployed and looking for a job?: No Are you interested in more education?: No Please select the resources that you would like help with: None Currently or been in a relationship where the following occur: no concerns reported THRIVE Score: 0 AUDIT C Alcohol Use Questionnaire (AUDIT-C) 1. How often do you have a drink containing alcohol?: Never 3. How often do you have six or more drinks on one occasion?: Never Total Score: 0 CORIE-7 AMB Questionnaire CORIE-7 Date CORIE - 7 assessed: 12/22/23 Feeling nervous, anxious, or on edge: 0 = Not at all Not being able to stop or control worryin = Nearly every day Worrying too much about different things: 3 = Nearly every day Trouble relaxin = Not at all Being so restless that it is hard to sit still: 0 = Not at all Becoming easily annoyed or irritable: 0 = Not at all Feeling afraid as if something awful might happen: 0 = Not at all Total CORIE-7 score (0-4 normal; 5-9 mild; 10-14 moderate; 15-21 severe): 6 Source: Developed by Drs. Lucho London, Bassem Park and colleagues, with an educational vianca from [employer]. CORIE-7 Assessment Billing CORIE-7 Assessment Tool: CORIE-7 Assessment 60928 ACT Questionnaire In the past 4 weeks, how much of the time did your asthma keep you from getting as much done at work, school or at home?: None of the time During the past 4 weeks, how often have you had shortness of breath?: Not at all During the past 4 weeks, how often did your asthma symptoms wake you up at night or earlier than usual in the morning?: Not at all During the past 4 weeks, how often have you had to use your rescue inhaler or nebulizer medication?: Not at all How would you rate your asthma control during the past 4 weeks?: Well controlled ACT Interpretation: Positive Score: 24 Review of Systems Const Details: Denies chills, Denies fatigue, Denies fever(s), Denies headache(s) and Denies weakness HEENT Denies change in vision, Denies dizziness, Denies headache(s), Denies hearing loss, Denies nasal congestion, Denies sinus pain, Denies sinus pressure and Denies sore throat Card Denies chest pain, Denies lightheadedness, Denies dyspnea and Denies other (palpitations) Resp Denies cough, Denies dyspnea and Denies wheezing GI Denies abdominal pain, Denies melena, Denies hematochezia, Denies change in bowel habits, Denies dyspepsia and Denies nausea Denies hematuria and Denies dysuria Musc Denies abnormal gait, Denies myalgias, Denies arthralgias, Denies numbness and Denies tingling Skin/Breast Denies rash, Denies unusual bruising and Denies wounds Neuro Denies abnormal gait, Denies dizziness, Denies headache(s), Denies memory loss, Denies numbness, Denies Sensory deficit (Neuro), Denies tingling and Denies weakness Psych Denies anxiety, Denies depression and Denies memory loss Endo Denies cold intolerance, Denies fatigue, Denies heat intolerance, Denies polydipsia and Denies polyuria Domingo/Lymph Denies easy bleeding and Denies easy bruising Aller/Immun Denies wheezing Physical exam (Primary Care) Vital Signs: Last Vital Signs Temp 97.5 F 12/22/23 11:24 Pulse 79 12/22/23 11:24 Resp 14 12/22/23 11:24 BP 118/60 12/22/23 11:24 Pulse Ox 99 12/22/23 11:24 Oxygen Delivery Method Room Air 12/22/23 11:24 BMI result Body Mass Index 33.8 Tobacco/Smoking Status: Tobacco use Status Tobacco use date assessed 12/22/23 12/22/23 11:33 Patient Tobacco Use Status Never used Tobacco 12/22/23 11:36 e-Cigarette/Vaping Use Never Used 12/22/23 11:36 PHQ-9: PHQ-9 Score PHQ-9: Total score 1 12/22/23 11:41 Depression Screening Interpretation: Negative Thrive Assessment: Date of Thrive Assessment Date Thrive assessed 12/22/23 12/22/23 11:38 Currently or been in a relationship where the following occur: no concerns reported Const Other: General: no acute distress, well developed, alert and awake Nutritional Appearance: well nourished Orientation/consciousness: patient oriented x3 HENMT Head: Yes normocephalic and Yes atraumatic Ears: hearing grossly normal bilaterally and TM's normal bilaterally General nose exam: Normal external nose present and Normal nares present Mouth: Normal oral and palatal mucosa present and moist mucous membranes Teeth and gingiva: dentition normal Throat: Yes oropharynx normal Eyes Pupils: Equal, round and reactive pupils present and Pupil accommodation reflex normal EOM: EOMs intact bilaterally Neck Neck: Yes normal visual inspection, Yes no lymphadenopathy and Yes trachea midline Thyroid: Thyroid normal Carotids: no bruits Lymphatic: no lymphadenopathy noted Chest Chest palpation & inspection: normal inspection of the chest Resp Effort & Inspection: normal respiratory effort Auscultation: clear to auscultation bilaterally Cardio Rate: regular rate Rhythm: regular rhythm Heart sounds: S1 normal heart sound present, S2 normal heart sound present, no gallops, no murmurs and no rubs Bruits: no abdominal aortic bruits and no carotid bruits GI Palpation (GI): No Abdominal aortic bruit present, Soft to palpation, nontender, No hepatosplenomegaly present and No Rebound tenderness present Auscultation: normal bowel sounds General: Yes no CVA tenderness Back/Spine/Pelvis Back: no CVA tenderness Cervical Spine: cervical ROM normal and No Cervical spine tenderness Thoracic/Lumbar Spine: thoraco-lumbar ROM normal, No pain with thoraco-lumbar ROM, No thoracic spinal tenderness and No lumbar spinal tenderness Skin General: warm and dry. Normal skin color. Normal skin turgor Lesions: no lesions Rashes: no rashes Trauma: no lacerations or abrasions Wounds: no wounds Nails: normal Neuro General: patient oriented x3, gait normal and CN's II-XI intact bilaterally Cranial nerves: Yes Equal, round and reactive pupils present Cognition (Neuro): normal cognition Gait exam (Neuro): Normal gait present Motor exam (neuro): 5/5 motor strength present throughout Sensory Exam: No Sensory deficit (Neuro) Deep tendon reflexes (DTR's): Right patellar reflex intensity grade: 2+ and Left patellar reflex intensity grade: 2+ Extrem General: Yes normal to inspection, No edema and No calf tenderness Psych Appearance: grossly normal Affect: normal affect Attitude: cooperative Thought process: Normal thought process present Assessment and Plan Assessment & Plan (1) Normal physical exam: Code(s): Z00.00 - Encounter for general adult medical examination without abnormal findings Plan: Normal physical exam of a 73-year-old female No significant physical restrictions or limitations noted Continue current treatment regimen Healthy diet and routine exercise encouraged Continue follow-up with pulmonology as planned Encouraged to sign a release to obtain record form 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 manager functional Return in 3 months for hypertension, anxiety, and depression or sooner with symptoms or concerns Verbalized understanding and agreed with treatment plan (2) Hypertension: Code(s): I10 - Essential (primary) hypertension Plan: Controlled Continue current treatment regimen Low-sodium diet encouraged Follow-up in 3 months Verbalized understanding and agreed with the plan (3) Anxiety with depression: Code(s): F41.8 - Other specified anxiety disorders Plan: Controlled Continue current treatment regimen Routine exercise encouraged Follow-up in 3 months Verbalized understanding and agreed with treatment plan (4) Colon cancer screening: Code(s): Z12.11 - Encounter for screening for malignant neoplasm of colon Plan: She has not had colonoscopy done in over 10 years Declines colonoscopy (5) Pap smear for cervical cancer screening: Code(s): Z12.4 - Encounter for screening for malignant neoplasm of cervix Plan: She had had Pap smear test done in over 10 years Referred to [facility] [place] [facility] it specialist for a Pap smear test (6) Vaccine counseling: Code(s): Z71.85 - Encounter for immunization safety counseling Plan: She has never been vaccinated for shingles or pneumonia. She has also not up-to-date on the flu vaccine. She declines vaccination for shingles, pneumonia or influenza Instructed on the importance of vaccination and encouraged to get vaccinated for shingles, pneumonia, and influenza Orders: Orders Lipid Panel Today Z00.00 - Encounter for general adult medical examination wit hout abnormal findings UA CC w/rflx Micro + Cult Today Z00.00 - Encounter for general adult medical examination without abnormal findings Complete Blood Count Auto Diff Today Z11.1 - Encounter for screening for respiratory tuberculosis Microalbumin, Random (w Creat) Today Z00.00 - Encounter for general adult medical examination without abnormal findings TSH reflex Free T4 Today Z00.00 - Encounter for general adult medical examination without abnormal findings Comprehensive Spurger. Panel Fast Today Z00.00 - Encounter for general adult medical examination without abnormal findings Referrals [facility] Referral Z12.4 - Encounter for screening for malignant neoplasm of cervix Medications: Refilled nxdfxoqfaw-kqgvsdbof-vzpueznri 40-5-25 mg 1 tab PO DAILY 90 tabs 1RF I10 - Essential (primary) hypertension fluoxetine 20 mg PO DAILY 90 days 90 caps 1RF Discontinued potassium chloride ER Discontinued Reason: Doctor's Order 20 mEq PO DAILY 30 days 30 tabs 0RF Coding Level of Care Code Est Pt Level 4 (88753) Est Pt Prev Care >65y(86242) Diagnoses Normal physical exam Z00.00 Hypertension I10 Anxiety with depression F41.8 Colon cancer screening Z12.11 Pap smear for cervical cancer screening Z12.4 Vaccine counseling Z71.85 Additional Codes CORIE-7 Assessment Billing - CORIE-7 Assessment Tool: CORIE-7 Assessment 87525 ([id number])
== END 2023-12-22 12:19 | disposition home or self-care (01) ==
LOC: HO.HMGFM 11:21
PROVIDERS: PCP Nurse Practitioner Family; Visit Provider Nurse Practitioner Family
DX: Z00.00 Encounter for general adult medical examination without abnormal findings (principal); I10 Essential (primary) hypertension; F41.8 Other specified anxiety disorders; Z12.11 Encounter for screening for malignant neoplasm of colon; Z12.4 Encounter for screening for malignant neoplasm of cervix; Z71.85 Encounter for immunization safety counseling
CPT/HCPCS: 96127; 99397

== ENCOUNTER 2023-12-22 12:20 | Outpatient (REF) | payer MEDICARE, SELFPAY ==
[2023-12-22 14:36] LABS: MANUAL DIFF FLAG NO
[2023-12-22 14:48] LABS: Appearance Urine Cloudy; Color Urine Yellow; Glucose Urine UA Negative (Negative); Leukocyte Esterase Urine Large (3+) (Negative); Nitrite Urine Negative (Negative); PH 5.5 (5.0-9.0); Specific Gravity - Urine 1.015 (1.005-1.025); UMIC TRIGGER UACC YES; Urine Blood Trace (Negative); Urine Ketones Negative (Negative); Urine Protein Negative (Neg-Trace)
[2023-12-22 15:01] LABS: Basophils Absolute Auto 0.1 X10*3/uL (0.0-0.2); Basophils Percent Auto 1.4 % (0-2); Eosinophils Absolute Auto 0.2 X10*3/uL (0.0-0.4); Eosinophils Percent Auto 2.3 % (0-4); Hemoglobin 12.1 g/dl (12.0-16.0); Imm Gran Abs Auto 0.03 X10*3/uL (0.00-0.03); Imm Gran Pct Auto 0.4 % (0.0-0.4); Lymphocytes Absolute Auto 2.5 X10*3/uL (1.2-4.9); Lymphocytes Percent Auto 36.1 % (20-40); Mean Corpuscular HGB Conc 33.6 g/dl (31.0-35.0); Mean Corpuscular Volume 92.3 fL (80.0-98.0); Mean Platelet Volume 10.3 fL (9.4-12.3); Monocytes Absolute Auto 0.7 X10*3/uL (0.1-1.2); Monocytes Percent Auto 9.6 % (2-11); Neutrophils Absolute Auto 3.5 x10*3/uL (2.0-8.3); Neutrophils Percent Auto 50.2 % (45-73); Platelet Count 274 X10*3/uL (160-400); Red Cell Distribution Width 12.9 % (11.0-16.0)
[2023-12-22 15:47] LABS: Creatinine Urine 95.82 mg/dL; Microalbum/Creatinine Ratio Ur 19.8 ug/mg cr (<30)
[2023-12-22 15:48] LABS: Bacteria Urine 4+ (None Seen); Hyaline Casts Urine 0-2 /LPF (0-2); RBC Urine 0-2 /HPF (0-2); UACC Culture Trigger YES
[2023-12-22 16:03] LABS: Alanine Aminotransferase 20 U/L (0-31); Albumin Level 4.2 g/dL (3.5-5.0); Alkaline Phosphatase 80 U/L (39-117); Anion Gap 13 (12-20); Aspartate Amino Transferase 17 U/L (5-31); Blood Urea Nitrogen 18 mg/dL (9-16); Calcium 9.7 mg/dL (8.4-10.2); Carbon Dioxide 26 mmol/L (22-29); Chloride 103 mmol/L (96-108); Cholesterol 211 mg/dL (<200); Estimated Glomerular Filt Rate > 60; Glucose Fasting 98 mg/dL (60-99); HDL Cholesterol 52 mg/dL (>40); LDL Cholesterol Calculated 128 mg/dL (<100); Potassium 3.8 mmol/L (3.3-5.1); Sodium 138 mmol/L (135-145); Total Protein 7.8 g/dL (6.5-8.0); Triglycerides 158 mg/dL (<150)
[2023-12-22 16:07] LABS: TSH reflex Free T4 0.94 uIU/mL (0.32-4.0)
== END 2023-12-22 12:21 | disposition home or self-care (01) ==
LOC: HO.WFDLDS 12:20
PROVIDERS: Visit Provider Nurse Practitioner Family
DX: Z00.00 Encounter for general adult medical examination without abnormal findings (principal); R82.90 Unspecified abnormal findings in urine; Z11.1 Encounter for screening for respiratory tuberculosis
CPT/HCPCS: 36415; 80053; 80061; 81001; 82043; 82570; 84443; 85025; 87086

== ENCOUNTER 2024-03-08 11:25 | Outpatient (AMB) | payer MEDICARE, SELFPAY ==
--- NOTE | 2024-03-08 11:29 | A.OFFPC_ITS ---
Vital Signs 03/08/24 11:41 Height 5 ft 3 in Weight 194 lb 6 oz BMI 34.4 BP 136/82 Blood Pressure Location Lt brachial Position Sitting Respiration 16 Pulse 63 Pulse Source Pulse Oximeter Pulse Oximetry (%) 98 Oxygen Delivery Method Room Air Intake Visit Reasons: 3 mos HTN, anxiety Intake Note: Follow up anxiety and htn. Needs a note for work saying she is healthy to work to take to new job in [place]. Requesting paper scripts for 90 days for Hydroxyzine 25, Olmesartan amlodipine hydrochlorthiazide 40-5-25 mg, and fluoxetine 25 Allergies lisinopril Adverse Reaction (Mild, Verified 03/08/24 11:52) Cough Medication List - Last Reconciled 03/08/24 by Jignesh He, KIM albuterol sulfate 90 mcg/actuation 2 puffs inhalation Q4-6H PRN 1 month cetirizine 10 mg PO DAILY fluoxetine 20 mg PO DAILY 90 days hydroxyzine HCl 25 mg PO TID PRN 30 days kkyqpztfmb-gmgjtwbpz-jbfxsnerv 40-5-25 mg 1 tab PO DAILY Tobacco use date assessed: 12/22/23 Dental Screening Dental Screen Date: 12/22/23 HPI HPI Comments History of Present Illness Details 73-year-old female presents for hyperten leann, anxiety, and depression She admits to taking her medications as prescribed without adverse reactions She reports controlled anxiety and depressive symptoms She notes that she eats and sleeps well. She has been exercising routinely She offers no complaints and denies acute symptoms at this time She states that she has not been taking her antihypertensive and antidepressant medications for the past 2 days because she does not currently have the medications in her possession. She is planning to move to [place] for several months. Therefore, she already mailed several things, including her medications to [place]. She requests new scripts for her medications [facility] Medical History Carpal tunnel syndrome, right Hypertension Carpal tunnel syndrome on both sides Asthma Surgical History History of bladder surgery Hx of hysterectomy History of appendectomy Family History Brother Diabetes Mother Mouth cancer Father Lung cancer Other No family history of mental disorder Social History Household Members: None Housing: House Are you a primary patient care manager to a significant other at home: No Do you presently have visiting nurse or other home services: No Alcohol intake: never Patient Tobacco Use Status: Never used Tobacco e-Cigarette/Vaping Use: Never Used Second Hand Smoke Exposure: No service: No 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 1. Little interest or pleasure in doing things: not at all 2. Feeling down, depressed, or hopeless: not at all 3. Trouble falling or staying asleep, or sleeping too much: not at all 4. Feeling tired or having little energy: not at all 5. Poor appetite or overeating: not at all 6. Feeling bad about yourself - or that you are a failure or have let yourself or your family down: not at all 7. Trouble concentrating on things, such as reading the newspaper or watching television: not at all 8. Moving or speaking so slowly that other people could have noticed. Or the opposite - being so fidgety or restless that you have been moving around a lot more than usual: not at all 9. Thoughts that you would be better off or of hurting yourself in some way: not at all Total score: 0 Depression Screening Interpretation: Negative Depression Screening Done: Yes 79812 - PHQ-9 Billing: Yes Source: Developed by Drs. Lucho London, Randa Keith, Bassem Bonds and colleagues, with an educational vianca from [employer]. Thrive Questionnaire Date Thrive assessed: 12/22/23 CORIE-7 AMB Questionnaire CORIE-7 Date CORIE - 7 assessed: 03/08/24 Feeling nervous, anxious, or on edge: 0 = Not at all Not being able to stop or control worryin = Nearly every day Worrying too much about different things: 0 = Not at all Trouble relaxin = Not at all Being so restless that it is hard to sit still: 0 = Not at all Becoming easily annoyed or irritable: 0 = Not at all Feeling afraid as if something awful might happen: 0 = Not at all Total CORIE-7 score (0-4 normal; 5-9 mild; 10-14 moderate; 15-21 severe): 3 Source: Developed by Drs. Lucho London, Randa Keith, Bassem Bonds and colleagues, with an educational vianca from [employer]. CORIE-7 Assessment Billing CORIE-7 Assessment Tool: CORIE-7 Assessment 43946 Review of Systems Const Details: Const Denies chills, Denies fatigue, Denies fever(s), Denies headache(s) and Denies weakness ENT Denies dizziness and Denies headache(s) Card Denies chest pain, Denies lightheadedness, Denies dyspnea and Denies other (Palpitations) Resp Denies cough, Denies dyspnea, Denies wheezing and Denies other ( shortness of breath) GI Denies abdominal pain, Denies melena, Denies hematochezia, Denies change in bowel habits, Denies dyspepsia and Denies nausea Denies hematuria and Denies dysuria Musc Denies abnormal gait, Denies myalgias, Denies arthralgias, Denies numbness and Denies tingling Skin/Breast Denies rash, Denies unusual bruising and Denies wounds Neuro Denies abnormal gait, Denies dizziness, Denies headache(s), Denies memory loss, Denies numbness, Denies Sensory deficit (Neuro), Denies tingling and Denies weakness Psych Denies anxiety, Denies depression, Denies memory loss Endo Denies cold intolerance, Denies fatigue, Denies heat intolerance, Denies polydipsia and Denies polyuria Aller/Immun Denies wheezing Physical exam (Primary Care) Vital Signs: Last Vital Signs Pulse 63 03/08/24 11:41 Resp 16 03/08/24 11:41 BP 136/82 03/08/24 11:41 Pulse Ox 98 03/08/24 11:41 Oxygen Delivery Method Room Air 03/08/24 11:41 BMI result Body Mass Index 34.4 Tobacco/Smoking Status: Tobacco use Status Tobacco use date assessed 12/22/23 03/08/24 11:31 Patient Tobacco Use Status Never used Tobacco 03/08/24 11:31 e-Cigarette/Vaping Use Never Used 03/08/24 11:31 PHQ-9: PHQ-9 Score PHQ-9: Total score 0 03/08/24 11:56 Depression Screening Interpretation: Negative Thrive Assessment: Date of Thrive Assessment Date Thrive assessed 12/22/23 03/08/24 11:31 Const Other: General: no acute distress and well developed Nutritional Appearance: well nourished Orientation/consciousness: patient oriented x3 HENMT Head: Yes normocephalic and Yes atraumatic Eyes General: appearance normal, both eyes and all related structures Pupils: Equal, round and reactive pupils present EOM: EOMs intact bilaterally Resp Effort & Inspection: normal respiratory effort Auscultation: clear to auscultation bilaterally Cardio Rate: regular rate Rhythm: regular rhythm Heart sounds: S1 normal heart sound present, S2 normal heart sound present, no gallops, no murmurs and no rubs GI Palpation (GI): No Abdominal aortic bruit present, Soft to palpation, nontender, No hepatosplenomegaly present and No Rebound tenderness present Auscultation: normal bowel sounds General: Yes no CVA tenderness Back/Spine/Pelvis Back: no CVA tenderness Cervical Spine: cervical ROM normal and No Cervical spine tenderness Thoracic/Lumbar Spine: thoraco-lumbar ROM normal, No pain with thoraco-lumbar ROM, No thoracic spinal tenderness and No lumbar spinal tenderness Extrem General: Yes normal to inspection, No edema and No calf tenderness Skin General: warm and dry. Normal skin color. Normal skin turgor Neuro General: patient oriented x3, gait normal and no focal neuro deficit Cranial nerves: Yes Equal, round and reactive pupils present Cognition (Neuro): normal cognition Gait exam (Neuro): Normal gait present Sensory Exam: No Sensory deficit (Neuro) Psych Appearance: grossly normal Affect: normal affect Attitude: cooperative Thought process: Normal thought process present Assessment and Plan Assessment & Plan (1) Hypertension: Code(s): I10 - Essential (primary) hypertension Plan: Blood pressure is 136/82, within goal of less than 140/90 Informed that her blood pressure is trending high in likely due to her not currently taking her medications The MA called patient's pharmacy and was informed that her medications can be refill for 90 days with no additional cost. 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 and take as prescribed Low-sodium diet encouraged Follow-up in 3 months or sooner with symptoms or concerns Verbalized understanding and agreed with the treatment plan (2) Anxiety with depression: Code(s): F41.8 - Other specified anxiety disorders Plan: Controlled anxiety and depressive symptoms PHQ-9 and CORIE-7 scores are normal Continue current treatment regimen Routine exercise encouraged Follow-up in 3 months or sooner with symptoms or concerns Verbalized understanding and agreed with the treatment plan (3) Hyperlipidemia: Code(s): E78.5 - Hyperlipidemia, unspecified Plan: Recent lab results reviewed with the patient; unremarkable findings except for slightly elevated triglycerides and total cholesterol levels, 158 and 211 respectively Advised to limit foods high in saturated fat and avoid foods high in trans fat Routine exercise encouraged She will do fasting blood work today. Will review results and make changes as needed Verbalized understanding and agreed with the plan Coding Level of Care Code Est Pt Level 4 (24714) Diagnoses Hypertension I10 Anxiety with depression F41.8 Hyperlipidemia E78.5 Additional Codes CORIE-7 Assessment Billing - CORIE-7 Assessment Tool: CORIE-7 Assessment [id number] ([id number])
[2024-03-08 11:41] VITALS: BP 136/82; PULSE 63; RESP 16; O2SAT 98; BMI 34.4
== END 2024-03-08 12:10 | disposition home or self-care (01) ==
PROVIDERS: PCP Nurse Practitioner Family; Visit Provider Nurse Practitioner Family
DX: I10 Essential (primary) hypertension (principal); F41.8 Other specified anxiety disorders; E78.5 Hyperlipidemia, unspecified
CPT/HCPCS: 99214

== ENCOUNTER 2024-03-08 12:15 | Outpatient (REF) | payer MEDICARE, SELFPAY ==
[2024-03-08 14:33] LABS: Appearance Urine Cloudy; Color Urine Yellow; Glucose Urine UA Negative (Negative); Leukocyte Esterase Urine Small (1+) (Negative); Nitrite Urine Positive (Negative); Specific Gravity - Urine >= 1.030 (1.005-1.025); UMIC TRIGGER UACC YES; Urine Blood Trace (Negative); Urine Ketones Negative (Negative); Urine Protein Negative (Neg-Trace)
[2024-03-08 14:40] LABS: Bacteria Urine 4+ (None Seen); Hyaline Casts Urine 0-2 /LPF (0-2); Squamous Epithelial Cell Urine >20 /HPF (0-2); UACC Culture Trigger YES; WBC Urine >50 /HPF (0-5)
[2024-03-08 15:21] LABS: Anion Gap 11 (12-20); Blood Urea Nitrogen 10 mg/dL (9-16); Calcium 9.5 mg/dL (8.4-10.2); Carbon Dioxide 24 mmol/L (22-29); Chloride 109 mmol/L (96-108); Cholesterol 202 mg/dL (<200); Estimated Glomerular Filt Rate > 60; Glucose Random 99 mg/dL (60-115); HDL Cholesterol 55 mg/dL (>40); LDL Cholesterol Calculated 130 mg/dL (<100); Potassium 3.9 mmol/L (3.3-5.1); Sodium 140 mmol/L (135-145); Triglycerides 89 mg/dL (<150)
[2024-03-08 15:23] LABS: TSH reflex Free T4 1.42 uIU/mL (0.32-4.0)
== END 2024-03-08 12:16 | disposition home or self-care (01) ==
LOC: HO.WFDLDS 12:15
PROVIDERS: Visit Provider Nurse Practitioner Family
DX: Z00.00 Encounter for general adult medical examination without abnormal findings (principal); E87.6 Hypokalemia
CPT/HCPCS: 36415; 80048; 80061; 81001; 84443; 87086

== ENCOUNTER 2024-12-27 10:46 | Outpatient (AMB) | payer MEDICARE, SELFPAY ==
--- NOTE | 2024-12-27 10:49 | MHC.PC.OV ---
Vital Signs 12/27/24 10:56 12/27/24 11:14 Height 5 ft 3 in Weight 196 lb BMI 34.7 BP 164/71 H 146/80 H Blood Pressure Location Lt brachial Lt brachial Position Sitting Sitting Respiration 16 Pulse 69 Pulse Source Pulse Oximeter Temp 97.7 F Temp Source Oral Pulse Oximetry (%) 97 Oxygen Delivery Method Room Air Intake Visit Reasons: hearing aid help Intake Note: patient here for hearing aid help and she needs medication Clinic Receptionist Required: No Is last menstrual period known: No Post menopausal: No Patient : No Allergies lisinopril Adverse Reaction (Mild, Verified 12/27/24 11:11) Cough Medication List - Last Reconciled 12/27/24 by Jignesh He CNP No Known Home Meds Tobacco use date assessed: 12/27/24 Fall risk assessment: No Falls in past year Last assessed Fall Risk: 12/27/24 Dental Screening Dental Screen Date: 12/27/24 Did you have a dental visit in the last 12 months?: Yes Did you have a dental problem in the last 6 months where you did not have access to dental care?: No Was dental information given to patient?: Patient has dentist HPI HPI Comments History of Present Illness Details 74-year-old female presents for follow-up visit. She has not taken her antihypertensive and antidepressant medications since she ran out of refills two weeks ago. She takes hydroxyzine and uses albuterol inhaler as needed. She reports controlled mood. She has been making healthy dietary choices and exercising routinely. She notes diminished hearing bilaterally. She had hearing test at [facility] yesterday. She recently lost one of her hearing aids are the pool. She wants to purchase a new set of hearing aids and was told my [facility] requires that she is evaluated by her PCP who must complete the form given to her. [facility] Medical History Carpal tunnel syndrome, right Hypertension Carpal tunnel syndrome on both sides Asthma Surgical History History of bladder surgery Hx of hysterectomy History of appendectomy Family History Brother Diabetes Mother Mouth cancer Father Lung cancer Other No family history of mental disorder Social History Household Members: None Both parents involved: No Caregiver staying overnight: No Housing: House Are you a primary health careers instructor to a significant other at home: No Do you presently have visiting nurse or other home services: No 75 years or older and lives alone: No Alcohol intake: never Patient Tobacco Use Status: Never used Tobacco e-Cigarette/Vaping Use: Never Used Second Hand Smoke Exposure: No service: No 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 1. Little interest or pleasure in doing things: not at all 2. Feeling down, depressed, or hopeless: not at all 3. Trouble falling or staying asleep, or sleeping too much: not at all 4. Feeling tired or having little energy: not at all 5. Poor appetite or overeating: not at all 6. Feeling bad about yourself - or that you are a failure or have let yourself or your family down: not at all 7. Trouble concentrating on things, such as reading the newspaper or watching television: not at all 8. Moving or speaking so slowly that other people could have noticed. Or the opposite - being so fidgety or restless that you have been moving around a lot more than usual: not at all 9. Thoughts that you would be better off or of hurting yourself in some way: not at all Total score: 0 Depression Screening Interpretation: Negative Depression Screening Done: Yes Source: Developed by Drs. Lucho London, Randa Keith, Bassem Bonds and colleagues, with an educational vianca from [employer]. Thrive Questionnaire Date Thrive assessed: 12/22/23 I am a: Patient What is your living situation today?: I have a steady place to live Within the past 12 months, did the food you bought not last and you didn't have the money to get more?: I choose not to answer this question Within the past 12 months, did you worry whether your food would run out before you got money to buy more?: Never true Do you have trouble paying for medicines?: No Do you have trouble getting transportation to medical appointments?: Yes Do you have trouble paying your heating and electricity bill?: No Do you have trouble taking care of your child, family member or friend?: No Do you have trouble with day-to-day activities such as bathing, preparing meals, shopping, managing finances, etc.?: No Are you currently unemployed and looking for a job?: No Are you interested in more education?: No Please select the resources that you would like help with: None Currently or been in a relationship where the following occur: I choose not to answer THRIVE Score: 1 AUDIT C Alcohol Use Questionnaire (AUDIT-C) 1. How often do you have a drink containing alcohol?: Never Total Score: 0 CORIE-7 AMB Questionnaire CORIE-7 Date CORIE - 7 assessed: 03/08/24 Feeling nervous, anxious, or on edge: 0 = Not at all Not being able to stop or control worryin = Not at all Worrying too much about different things: 0 = Not at all Trouble relaxin = Not at all Being so restless that it is hard to sit still: 0 = Not at all Becoming easily annoyed or irritable: 0 = Not at all Feeling afraid as if something awful might happen: 0 = Not at all Total CORIE-7 score (0-4 normal; 5-9 mild; 10-14 moderate; 15-21 severe): 0 Source: Developed by Drs. Lucho London, Randa Keith, Bassem Bonds and colleagues, with an educational vianca from [employer]. Review of Systems Const Details: Const Denies chills, Denies fatigue, Denies fever(s), Denies headache(s) and Denies weakness ENT Reports as per HPI Card Denies chest pain, Denies lightheadedness, Denies dyspnea and Denies other (Palpitations) Resp Denies cough, Denies dyspnea, Denies wheezing and Denies other ( shortness of breath) GI Denies abdominal pain, Denies melena, Denies hematochezia, Denies change in bowel habits, Denies dyspepsia and Denies nausea Denies hematuria and Denies dysuria Musc Denies abnormal gait, Denies myalgias, Denies arthralgias, Denies numbness and Denies tingling Skin/Breast Denies rash, Denies unusual bruising and Denies wounds Neuro Denies abnormal gait, Denies dizziness, Denies headache(s), Denies memory loss, Denies numbness, Denies Sensory deficit (Neuro), Denies tingling and Denies weakness Psych Denies anxiety, Denies depression, Denies memory loss Endo Denies cold intolerance, Denies fatigue, Denies heat intolerance, Denies polydipsia and Denies polyuria Aller/Immun Denies wheezing Physical exam (Primary Care) Vital Signs: Last Vital Signs Temp 97.7 F 12/27/24 10:56 Pulse 69 12/27/24 10:56 Resp 16 12/27/24 10:56 BP 146/80 H 12/27/24 11:14 Pulse Ox 97 12/27/24 10:56 Oxygen Delivery Method Room Air 12/27/24 10:56 BMI result Body Mass Index 34.7 Tobacco/Smoking Status: Tobacco use Status Tobacco use date assessed 12/27/24 12/27/24 11:00 Patient Tobacco Use Status Never used Tobacco 12/27/24 10:51 e-Cigarette/Vaping Use Never Used 12/27/24 10:51 PHQ-9: PHQ-9 Score PHQ-9: Total score 0 12/27/24 11:13 Depression Screening Interpretation: Negative Thrive Assessment: Date of Thrive Assessment Date Thrive assessed 12/22/23 12/27/24 10:51 Currently or been in a relationship where the following occur: I choose not to answer Const Other: General: no acute distress and well developed Nutritional Appearance: well nourished Orientation/consciousness: patient oriented x3 HENMT Head is normocephalic Diminished hearing bilaterally Bilateral ear canal and TM are normal Nasal turbinates and oropharynx are pink and moist Sinuses are nontender with palpation No auricular or cervical lymphadenopathy Eyes General: appearance normal, both eyes and all related structures Pupils: Equal, round and reactive pupils present EOM: EOMs intact bilaterally Resp Effort & Inspection: normal respiratory effort Auscultation: clear to auscultation bilaterally Cardio Rate: regular rate Rhythm: regular rhythm Heart sounds: S1 normal heart sound present, S2 normal heart sound present, no gallops, no murmurs and no rubs GI Palpation (GI): No Abdominal aortic bruit present, Soft to palpation, nontender, No hepatosplenomegaly present and No Rebound tenderness present Auscultation: normal bowel sounds General: Yes no CVA tenderness Back/Spine/Pelvis Back: no CVA tenderness Cervical Spine: cervical ROM normal and No Cervical spine tenderness Thoracic/Lumbar Spine: thoraco-lumbar ROM normal, No pain with thoraco-lumbar ROM, No thoracic spinal tenderness and No lumbar spinal tenderness Extrem General: Yes normal to inspection, No edema and No calf tenderness Skin General: warm and dry. Normal skin color. Normal skin turgor Neuro General: patient oriented x3, gait normal and no focal neuro deficit Cranial nerves: Yes Equal, round and reactive pupils present Cognition (Neuro): normal cognition Gait exam (Neuro): Normal gait present Sensory Exam: No Sensory deficit (Neuro) Psych Appearance: grossly normal Affect: normal affect Attitude: cooperative Thought process: Normal thought process present Coding Level of Care Code Est Pt Level 4 (59484) Diagnoses Hypertension I10 Anxiety with depression F41.8 AGUA CALIENTE (hard of hearing) H91.90 Assessment & Plan Assessment & Plan (1) Hypertension: Code(s): I10 - Essential (primary) hypertension Category: Medical Plan: Resting blood pressure is 146/80, above goal of less than 140/90. Ffxinaptfp-lolviopspg-fxkzimxuejopqxwkvzd 45-25 mg daily refilled; advised to take as prescribed. Low-sodium diet encouraged. Follow-up in 1 month or sooner with symptoms or concerns. Verbalized understanding and agreed with the plan. (2) Anxiety with depression: Code(s): F41.8 - Other specified anxiety disorders Category: Medical Plan: Controlled anxiety and depressive symptoms. PHQ-9 and CORIE-7 scores is normal. Fluoxetine 20 mg daily and hydroxyzine 25 mg 3 times daily as needed refilled; advised to take as prescribed. Routine exercise encouraged. Follow-up in 1 month. Verbalized understanding and agreed with the plan. (3) AGUA CALIENTE (hard of hearing): Code(s): H91.90 - Unspecified hearing loss, unspecified ear Category: Medical Plan: Diminished hearing bilaterally. Normal ear canal and TM bilaterally. Form completed for new hearing aids. Follow-up as needed. Verbalized understanding and agreed with the plan. Medications: Refilled vntgpxuupi-ousscyhnk-nyrcecgoj 40-5-25 mg 1 tab PO DAILY 90 tabs 1RF I10 - Essential (primary) hypertension albuterol sulfate 90 mcg/actuation 2 puffs inhalation Q4-6H PRN 8.5 grams 6RF shortness of breath or wheezing 1 month J45.909 - Unspecified asthma, uncomplicated fluoxetine 20 mg PO DAILY 90 caps 1RF 90 days hydroxyzine HCl 25 mg PO TID PRN 90 tabs 1RF anxiety 30 days
[2024-12-27 10:56] VITALS: BP 164/71; PULSE 69; RESP 16; TEMP 36.5; O2SAT 97; BMI 34.7
[2024-12-27 11:14] VITALS: BP 146/80
--- OUTSIDE RECORDS SUMMARY | 2024-12-27 12:25 | XMS_ITS | Clinical Summary ---
Author Organization 175 [facility] Address [address] [place] [address] Phone Care Team Providers Care Inspecting Supervisor Name Role Phone Genet Sandoval NP Primary Care Provider [phone] Allergies Active Allergy Reactions Criticality Noted Date Comments Lisinopril Cough 07/11/2014 Medications hydrOXYzine HCL (ATARAX) 25 mg tablet 25 MG ORALLY 3 TIMES A DAY NEEDED FOR ANXIETY FOR 30 DAYS 3 Active albuterol HFA (PROAIR HFA ; PROVENTIL HFA ; VENTOLIN HFA) 90 mcg/actuation inhaler Inhale 2 puffs every 4 (four) hours if needed for wheezing or shortness of breath. 3 Active cetirizine (ZyrTEC) 10 mg tablet Take 1 tablet (10 mg total) by mouth 1 (one) time each day. 3 Active cholecalciferol (VITAMIN D-3) 25 mcg (1,000 unit) tablet Take 1 tablet (1,000 Units total) by mouth 1 (one) time each day. Active FLUoxetine (PROzac) 20 mg capsule Take 2 capsules (40 mg total) by mouth 1 (one) time each day. 2 Active fluticasone propionate (FLONASE) 50 mcg/actuation nasal spray Administer 2 sprays into affected nostril(s) 1 (one) time each day. 3 Active ipratropium-alb uteroL (DUONEB) 0.5-2.5 mg/3 mL nebulizer solution Inhale 3 mL. 1 Active magnesium oxide 400 mg magnesium capsule Take 1 capsule by mouth 1 (one) time each day. 2 Active olmesartan-hydr oCHLOROthiazide (BENICAR HCT) 40-25 mg per tablet Take 1 tablet by mouth 1 (one) time each day. 2 Active ondansetron (ZOFRAN) 4 mg tablet Take 1 tablet (4 mg total) by mouth. 1 Active multivitamin (MULTIPLE VITAMINS ORAL) Take by mouth. Active cyanocobalamin, vitamin B-12, 1,000 mcg tablet, sublingual Take by mouth 1 (one) time each day. Active KRILL OIL ORAL Take by mouth. Active inhalat.spacing dev,large mask spacer Use every 4 hours as needed with Inhaler 0 Active Active Problems Problem Noted Date Diagnosed Date HTN (hypertension) 09/22/2023 Carpal tunnel syndrome of right wrist 09/22/2023 Overview (09/22/2023): Fox right sided FH: early coronary artery disease 09/22/2023 Overview (09/22/2023): Brother [place] in 50's Lab test negative for COVID-19 virus 10/15/2020 Elevated LFTs 04/07/2020 Overview (09/22/2023): 03/2020 Asthma 04/06/2020 Overview (09/22/2023): More of an issue in childhood Thyroid nodule 11/10/2017 LVH (left ventricular hypertrophy) 11/09/2017 Overview (09/22/2023): Noted on echo from 11/11; EF 65% Second hand smoke exposure 10/27/2017 Coronary artery disease invo lving [place] coronary artery of [place] heart without angina pectoris 09/01/2016 DIEGO (obstructive sleep apnea) 03/31/2016 Dyslipidemia 08/03/2014 Depression 07/11/2014 Overview (09/22/2023): Related to daughter's ~2009 Elevated fasting blood sugar 02/28/2014 Elevated TSH 02/28/2014 Microscopic hematuria 02/28/2014 Vitamin D deficiency 02/28/2014 Immunizations Name Administration Dates Next Due Influenza trivalent, 0.5mL ( Fluzone High-dose) 65yo and older 04/22/2021,04/06/2020,04/08/2017 Influenza trivalent, with pr eservative (Fluzone; Afluria) 6mo and older 08/29/2016 MMR, measles mumps and rubel la Live (Priorix; M-M-R II) 12mo and older 05/08/2021 PPD Test 02/07/2019, 8,04/08/2017,08/20,08/29/2015 [employer]x SARS-CoV-2 COVID-19, mRNA, LNP-S, preservative free 09/20/2020,08/30/2020 Pneumococcal conjugate 13 va lent (Prevnar 13, PCV13) 2mo and older 08/29/2015 Pneumococcal polysaccharide 23 valent (Pneumovax 23) 2yo and older 08/03/2014 Tdap Tetanus diptheria acell ular pertussis (Boostrix; Adacel) 7yo and older 02/20/2017 Surgical History Surgery Date Site/Laterality Comments HYSTERECTOMY PROCEDURE: HISTORICAL HYSTERECTOMY BLADDER SUSPENSION PROCEDURE: HISTORICAL BLADDER SUSPENSION CARPAL TUNNEL RELEASE 2019 Right PROCEDURE: MO NEUROPLASTY &/TRANSPOS MEDIAN NRV CARPAL TUNNE BACK SURGERY 2019 PROCEDURE: HISTORICAL BACK SURGERY Medical History Medical History Date Comments HTN (hypertension) DX:HTN (hyper tension) Depressed DX:Depressed CTS (carpal tunnel syndrome) 12/2017 DX: CTS (carpal tunnel syndrome); COMMENT: fox right sided Family History Medical History Relation Name Comments Other: breathing issues Brother 1 Coronary artery disease Brother 2 s/p [place] No Known Problems Daughter 1 No Known Problems Daughter 2 No Known Problems Son Relation Name Status Comments Brother 1 Alive Brother 2 Alive Daughter 1 Daughter 2 Alive Father Alive Mother Alive Son Alive Social History Tobacco Use Types Packs/Day Years Used Date Smoking Tobacco: Never Smokeless Tobacco: Never Alcohol Use Standard Drinks/Week Comments Yes 0 (1 standard drink = 0.6 oz pur e alcohol) Comments Unknown Sex and Gender Information Value Date Recorded Sex Assigned at Not on file Legal Sex Female 2:51 PM EST Gender Identity Not on file Sexual Orientation Not on file Obstetrics History Last Filed Vital Signs Vital Sign Reading Time Taken Comments Blood Pressure 130/70 09/18/2023 9:48 AM EST Pulse 72 09/18/2023 9:48 AM EST Temperature - - Respiratory Rate - - Oxygen Saturation - - Inhaled Oxygen Concentration - - Weight 86.3 kg (190 lb 3.2 oz) 09/18/2023 9:48 A M EST Height 152.4 cm (5') 09/18/2023 9:48 AM EST Body Mass Index 37.15 09/18/2023 9:48 AM EST Plan of Treatment Health Maintenance Due Date Last Done Comments Zoster Vaccines (1 of 2) 1998 Cholesterol Screening (Lipid Panel) 07/05/2022 Depression Screening 07/05/2022 Falls Risk Assessment 07/05/2022 Hepatitis C Screening 07/05/2022 Medicare Annual Wellness Visit 07/05/2022 Social Influencers of Health Screening 07/05/2022 Hypertension/CHF/CAD Annual BMP Blood Test 07/06/2022 RSV Immunization Adult Patients (1 - 1-dose 75+ series) 2023 COVID-19 Vaccine ( - season) 2024 09/20/2020, 08/30/2020 Influenza Vaccine (Season Ended) 2025 04/22/2021, 04/06/2020, 04/08/2017, Additional history exists DTaP,Tdap,and Td Vaccines (2 - Td or Tdap) 02/20/2027 02/20/2017 Osteoporosis Screening (Bone Density Screening) 05/06/2027 05/06/2017 Pneumococcal Vaccine: 50+ Years Completed 08/29/2015, 08/03/2014 MMR Vaccines Aged Out 05/08/2021 No longer eligi ble based on patient's age to complete this topic HIB Vaccines Aged Out No longer eligi ble based on patient's age to complete this topic HPV Vaccines Aged Out No longer eligi ble based on patient's age to complete this topic Hepatitis A Vaccines Aged Out No long er eligible based on patient's age to complete this topic Hepatitis B Vaccines Aged Out No long er eligible based on patient's age to complete this topic IPV Vaccines Aged Out No longer eligi ble based on patient's age to complete this topic Meningococcal ACWY Vaccine Aged Out N o longer eligible based on patient's age to complete this topic Meningococcal B Vaccine Aged Out No l onger eligible based on patient's age to complete this topic RSV Immunization Patients Under 20 months Aged Out No longer eligible based on patient's age to complete this topic Varicella Vaccines Aged Out No longer eligible based on patient's age to complete this topic Procedures Procedure Name Priority Date/Time Associated Diagnosis Comments DXA BONE DENSITY STUDY 1+ SITS AXIAL SKEL Routine 05/06/2017 9:39 AM EDT Asymptomatic menopausal state from Last 3 Months or Most Recently Relevant to Health Maintenance Results * DXA BONE DENSITY STUDY 1+ SITS AXIAL SKEL (05/06/2017 9:39 AM EDT) Anatomical Region Laterality Modality Bone Densitometr y 04/08/2017 11:3 5 AM EDT Narrative 05/06/2017 3:47 PM EDT BONE DENSITY ? Lumbar Spine T-score is +0.0 ?? (SD relative to 20-29 y/o adult) Z-score is +2.0 ??(SD relative to age matched peers) This is normal by criteria defined by the WHO. Left Hip T-score is +2.0 Z-score is +2.6 This is normal by criteria defined by the WHO. Impression: Based on the World Health Organization criteria, [place] should be classified as having normal bone density. The [facility] Department of Internal Medicine recommends using National Osteoporosis Foundation (NOF) guidelines in treatment decisions related to osteoporosis. NOF guidelines suggest considering treatment for postmenopausal women and men aged 50 or older presenting with the following: History of hip or vertebral fracture. T-score less than or equal to -2.5 (DXA) at the femoral neck, total hip, or spine, after appropriate evaluation to exclude secondary causes. Low bone mass (T-score between -1.0 and -2.5 at the femoral neck or spine) AND a 10-year probability of a hip fracture greater than or equal to 3% OR a 10-year probability of a major osteoporosis-related fracture greater than or equal to 20% based on the [place]-adapted WHO algorithm Please note that all treatment decisions require clinical judgment and consideration of individual patient factors, including patient preferences, co-morbidities, previous drug use, risk factors not captured in the FRAX model (e.g., frailty, falls, vitamin D deficiency, increased bone turnover, interval significant decline in bone density) and possible under- or over-estimation of fracture risk by FRAX. Procedure Note Irma Mcgregor MD - 08/28/2023 BONE DENSITY Lumbar Spine T-score is +0.0 (SD relative to 20-29 y/o adult) Z-score is +2.0 (SD relative to age matched peers) This is normal by criteria defined by the WHO. Left Hip T-score is +2.0 Z-score is +2.6 This is normal by criteria defined by the WHO. Impression: Based on the World Health Organization criteria, [place] be classified as having normal bone density. The [facility] Department of Internal Medicine recommendsusing National Osteoporosis Foundation (NOF) guidelines in treatmentdecisions related to osteoporosis. NOF guidelines suggest consideringtreatment for postmenopausal women and men aged 50 or older presentingwith the following: History of hip or vertebral fracture. T-score less than or equal to -2.5 (DXA) at the femoral neck, total hip,or spine, after appropriate evaluation to exclude secondary causes. Low bone mass (T-score between -1.0 and -2.5 at the femoral neck or spine)AND a 10-year probability of a hip fracture greater than or equal to 3% ORa 10-year probability of a major osteoporosis-related fracture greaterthan or equal to 20% based on the [place]-adapted WHO algorithm Please note that all treatment decisions require clinical judgment andconsideration of individual patient factors, including patientpreferences, co-morbidities, previous drug use, risk factors not capturedin the FRAX model (e.g., frailty, falls, vitamin D deficiency, increasedbone turnover, interval significant decline in bone density) and possibleunder- or over-estimation of fracture risk by FRAX. Roseanna Cartagena DO IM DXA PROCEDURE S Final Result from Last 3 Months or Most Recently Relevant to Health Maintenance Insurance [employer] MEDICARE Care Teams Inspecting Supervisor Relationship Specialty Start Date End Date Genet Sandoval NP [address] [place] [address] [address] [place] [address] PCP - General 10/22/22
== END 2024-12-27 11:34 | disposition home or self-care (01) ==
LOC: HO.HMCFM 10:47
PROVIDERS: PCP Nurse Practitioner Family; Visit Provider Nurse Practitioner Family
DX: I10 Essential (primary) hypertension (principal); F41.8 Other specified anxiety disorders; H91.90 Unspecified hearing loss, unspecified ear

== ENCOUNTER → 2024-12-27 10:46 | Outpatient (BNVA) | payer MEDICARE, SELFPAY | PROVIDERS: PCP Nurse Practitioner Family; Visit Provider Nurse Practitioner Family | DX: I10 Essential (primary) hypertension (principal); F41.8 Other specified anxiety disorders; H91.93 Unspecified hearing loss, bilateral | CPT/HCPCS: 99212 ==

== ENCOUNTER 2025-02-03 13:11 | Outpatient (AMB) | payer MEDICARE, SELFPAY ==
--- OUTSIDE RECORDS SUMMARY | 2025-02-03 13:14 | XMS_ITS | Clinical Summary ---
Author Organization 175 [facility] Address [address] [place] [address] Phone Care Team Providers Care Cell Phone Repair Technician Name Role Phone Genet Sandoval NP Primary Care Provider Allergies Active Allergy Reactions Criticality Noted Date [...] coronary artery disease 09/22/2023 Overview (09/22/2023): Brother [place] in 50's Lab test negative for COVID-19 virus 10/15/2020 Elevated LFTs 04/07/2020 Overview (09/22/2023): 03/2020 Asthma 04/06/2020 Overview (09/22/2023): More of an issue in childhood Thyroid nodule 11/10/2017 LVH (left ventricular hypertrophy) 11/09/2017 Overview (09/22/2023): Noted on echo from 11/11; EF 65% Second hand smoke exposure 10/27/2017 Coronary artery disease invo lving [place] coronary artery of [place] heart without angina pectoris 09/01/2016 DIEGO (obstructive [...] and older 05/08/2021 PPD Test 02/07/2019, 8,04/08/2017,08/20,08/29/2015 [employer] SARS-CoV-2 COVID-19, mRNA, LNP-S, preservative free 09/20/2020,08/30/2020 Pneumococcal conjugate 13 va lent (Prevnar 13, PCV13) 2mo and older 08/29/2015 Pneumococcal polysaccharide 23 valent (Pneumovax 23) 2yo and older 08/03/2014 Tdap Tetanus diptheria acell ular pertussis (Boostrix; Adacel) 7yo and older 02/20/2017 Surgical History Surgery Date Site/Laterality Comments HYSTERECTOMY PROCEDURE: HISTORICAL HYSTERECTOMY BLADDER SUSPENSION PROCEDURE: HISTORICAL BLADDER SUSPENSION CARPAL TUNNEL RELEASE 2019 Right PROCEDURE: IN NEUROPLASTY &/TRANSPOS MEDIAN NRV CARPAL TUNNE BACK SURGERY 2019 PROCEDURE: HISTORICAL BACK SURGERY Medical History Medical History Date Comments HTN (hypertension) DX:HTN (hyper tension) Depressed DX:Depressed CTS (carpal tunnel syndrome) 12/2017 DX: CTS (carpal tunnel syndrome); COMMENT: fox right sided Family History Medical History Relation Name Comments Other: breathing issues Brother 1 Coronary artery disease Brother 2 s/p [place] No Known Problems Daughter 1 No Known [...] - 1-dose 75+ series) 2023 COVID-19 Vaccine (3 - season) 2024 09/20/2020, 08/30/2020 Influenza Vaccine (#1) 2025 , 04/06/2020, 04/08/2017, Additional history exists DTaP,Tdap,and Td [...] Narrative 05/06/2017 3:47 PM EDT BONE DENSITY Lumbar Spine T-score is +0.0 [...] classified as having normal bone density. The [facility] Department of Internal Medicine recommends using [...] classified as having normal bone density. The [facility] Department of Internal Medicine recommendsusing National [...] over-estimation of fracture risk by FRAX. Roseanna Krakowiak-Colasacco DO IMG DXA PROCEDURE S Final Result from Last 3 Months or Most Recently Relevant to Health Maintenance Insurance [employer] MED[employer] Care Teams Cell Phone Repair Technician Relationship Specialty Start Date End Date Genet Sandoval NP [address] [place] [address] [address] [place] [address] PCP - General 10/22/22
--- NOTE | 2025-02-03 13:16 | MHC.PC.OV ---
Vital Signs 02/03/25 13:30 Height 5 ft 3 in Weight 195 lb 6 oz BMI 34.6 BP 118/57 L Blood Pressure Location Lt brachial Position Sitting Respiration 16 Pulse 97 Pulse Source Pulse Oximeter Temp 98.2 F Temp Source Oral Pulse Oximetry (%) 97 Oxygen Delivery Method Room Air Intake Visit Reasons: 1 mos HTN, anxiety, depression Intake Note: patient here for 1 month follow up on HTN and depression Line Installer Required: No Is last menstrual period known: No Post menopausal: No Patient : No Allergies lisinopril Adverse Reaction (Mild, Verified 02/03/25 13:46) Cough Medication List - Last Reviewed 02/03/25 by Fawn Wright MA albuterol sulfate 90 mcg/actuation 2 puffs inhalation Q4-6H PRN 1 month fluoxetine 20 mg PO DAILY 90 days hydroxyzine HCl 25 mg PO TID PRN hhgwemawfm-bnvydeeiu-osujowovf 40-5-25 mg 1 tab PO DAILY Tobacco use date assessed: 12/27/24 Fall risk assessment: No Falls in past year Last assessed Fall Risk: 02/03/25 Dental Screening Dental Screen Date: 02/03/25 Did you have a dental visit in the last 12 months?: Yes Did you have a dental problem in the last 6 months where you did not have access to dental care?: No Was dental information given to patient?: Patient has dentist HPI HPI Comments History of Present Illness Details 74-year-old female presents for hypertension, anxiety, and depression follow-up. She admits to taking her medications as prescribed without adverse reactions. She takes hydroxyzine as needed. She reports controlled anxiety and depressive symptoms. She notes that she has been making healthy dietary choices and exercising routinely. She offers no complaints and denies acute symptoms at this time. FORMERLY [facility], [facility] Medical History Carpal tunnel syndrome, right Hypertension Carpal tunnel syndrome on both sides Asthma Surgical History History of bladder surgery Hx of hysterectomy History of appendectomy Family History Brother Diabetes Mother Mouth cancer Father Lung cancer Other No family history of mental disorder Social History (Reviewed 12/22/23 @ 11:36 by BASSEM Arteaga Household Members: None Both parents involved: No Caregiver staying overnight: No Housing: House Are you a primary cardiac care nurse to a significant other at home: No Do you presently have visiting nurse or other home services: No 75 years or older and lives alone: No Alcohol intake: never Patient Tobacco Use Status: Never used Tobacco e-Cigarette/Vaping Use: Never Used Second Hand Smoke Exposure: No service: No 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 1. Little interest or pleasure in doing things: not at all 2. Feeling down, depressed, or hopeless: not at all 3. Trouble falling or staying asleep, or sleeping too much: not at all 4. Feeling tired or having little energy: not at all 5. Poor appetite or overeating: not at all 6. Feeling bad about yourself - or that you are a failure or have let yourself or your family down: not at all 7. Trouble concentrating on things, such as reading the newspaper or watching television: not at all 8. Moving or speaking so slowly that other people could have noticed. Or the opposite - being so fidgety or restless that you have been moving around a lot more than usual: not at all 9. Thoughts that you would be better off or of hurting yourself in some way: not at all Total score: 0 Depression Screening Interpretation: Negative Depression Screening Done: Yes 13204 - PHQ-9 Billing: Yes Source: Developed by Drs. Lucho London, Randa Keith, Bassem Bonds and colleagues, with an educational vianca from [employer]. Thrive Questionnaire Date Thrive assessed: 12/27/24 I am a: Patient What is your living situation today?: I have a steady place to live Within the past 12 months, did the food you bought not last and you didn't have the money to get more?: I choose not to answer this question Within the past 12 months, did you worry whether your food would run out before you got money to buy more?: Never true Do you have trouble paying for medicines?: No Do you have trouble getting transportation to medical appointments?: Yes Do you have trouble paying your heating and electricity bill?: No Do you have trouble taking care of your child, family member or friend?: No Do you have trouble with day-to-day activities such as bathing, preparing meals, shopping, managing finances, etc.?: No Are you currently unemployed and looking for a job?: No Are you interested in more education?: No Please select the resources that you would like help with: None Currently or been in a relationship where the following occur: I choose not to answer THRIVE Score: 1 CORIE-7 AMB Questionnaire CORIE-7 Date CORIE - 7 assessed: 02/03/25 Feeling nervous, anxious, or on edge: 0 = Not at all Not being able to stop or control worryin = Not at all Worrying too much about different things: 0 = Not at all Trouble relaxin = Not at all Being so restless that it is hard to sit still: 0 = Not at all Becoming easily annoyed or irritable: 0 = Not at all Feeling afraid as if something awful might happen: 0 = Not at all Total CORIE-7 score (0-4 normal; 5-9 mild; 10-14 moderate; 15-21 severe): 0 Source: Developed by Drs. Lucho London, Randa Keith, Bassem Bonds and colleagues, with an educational vianca from [employer]. CORIE-7 Assessment Billing CORIE-7 Assessment Tool: CORIE-7 Assessment 56242 Review of Systems Const Details: Const Denies chills, Denies fatigue, Denies fever(s), Denies headache(s) and Denies weakness ENT Denies dizziness and Denies headache(s) Card Denies chest pain, Denies lightheadedness, Denies dyspnea and Denies other (Palpitations) Resp Denies cough, Denies dyspnea, Denies wheezing and Denies other ( shortness of breath) GI Denies abdominal pain, Denies melena, Denies hematochezia, Denies change in bowel habits, Denies dyspepsia and Denies nausea Denies hematuria and Denies dysuria Musc Denies abnormal gait, Denies myalgias, Denies arthralgias, Denies numbness and Denies tingling Skin/Breast Denies rash, Denies unusual bruising and Denies wounds Neuro Denies abnormal gait, Denies dizziness, Denies headache(s), Denies memory loss, Denies numbness, Denies Sensory deficit (Neuro), Denies tingling and Denies weakness Psych Denies anxiety, Denies depression, Denies memory loss Endo Denies cold intolerance, Denies fatigue, Denies heat intolerance, Denies polydipsia and Denies polyuria Aller/Immun Denies wheezing Physical exam (Primary Care) Vital Signs: Last Vital Signs Temp 98.2 F 02/03/25 13:30 Pulse 97 02/03/25 13:30 Resp 16 02/03/25 13:30 BP 118/57 L 02/03/25 13:30 Pulse Ox 97 02/03/25 13:30 Oxygen Delivery Method Room Air 02/03/25 13:30 BMI result Body Mass Index 34.6 Tobacco/Smoking Status: Tobacco use Status Tobacco use date assessed 12/27/24 02/03/25 13:18 Patient Tobacco Use Status Never used Tobacco 02/03/25 13:18 e-Cigarette/Vaping Use Never Used 02/03/25 13:18 Depression Screening Interpretation: Negative Thrive Assessment: Date of Thrive Assessment Date Thrive assessed 12/27/24 02/03/25 13:18 Currently or been in a relationship where the following occur: I choose not to answer Const Other: General: no acute distress and well developed Nutritional Appearance: well nourished Orientation/consciousness: patient oriented x3 HENMT Head: Yes normocephalic and Yes atraumatic Eyes General: appearance normal, both eyes and all related structures Pupils: Equal, round and reactive pupils present EOM: EOMs intact bilaterally Resp Effort & Inspection: normal respiratory effort Auscultation: clear to auscultation bilaterally Cardio Rate: regular rate Rhythm: regular rhythm Heart sounds: S1 normal heart sound present, S2 normal heart sound present, no gallops, no murmurs and no rubs GI Palpation (GI): No Abdominal aortic bruit present, Soft to palpation, nontender, No hepatosplenomegaly present and No Rebound tenderness present Auscultation: normal bowel sounds General: Yes no CVA tenderness Back/Spine/Pelvis Back: no CVA tenderness Cervical Spine: cervical ROM normal and No Cervical spine tenderness Thoracic/Lumbar Spine: thoraco-lumbar ROM normal, No pain with thoraco-lumbar ROM, No thoracic spinal tenderness and No lumbar spinal tenderness Extrem General: Yes normal to inspection, No edema and No calf tenderness Skin General: warm and dry. Normal skin color. Normal skin turgor Neuro General: patient oriented x3, gait normal and no focal neuro deficit Cranial nerves: Yes Equal, round and reactive pupils present Cognition (Neuro): normal cognition Gait exam (Neuro): Normal gait present Sensory Exam: No Sensory deficit (Neuro) Psych Appearance: grossly normal Affect: normal affect Attitude: cooperative Thought process: Normal thought process present Coding Level of Care Code Est Pt Level 3 (20203) Diagnoses Hypertension I10 Anxiety with depression F41.8 Laboratory tests ordered as part of a complete physical exam (CPE) Z00.00 Additional Codes CORIE-7 Assessment Billing - CORIE-7 Assessment Tool: CORIE-7 Assessment 22404 ([id number]) PHQ-9 - 38259 - PHQ-9 Billing: Yes ([id number]) Assessment & Plan Assessment & Plan (1) Hypertension: Code(s): I10 - Essential (primary) hypertension Category: Medical Plan: Blood pressure is 118/57, within goal of less than 140/90. Continue current treatment regimen. Low-sodium diet and routine exercise encouraged. Perform lab work and follow-up for telehealth visit in 1 month. Return sooner with symptoms or concerns. Verbalized understanding and agreed with the plan. (2) Anxiety with depression: Code(s): F41.8 - Other specified anxiety disorders Category: Medical Plan: Reports controlled anxiety and depressive symptoms. PHQ-9 and CORIE-7 scores are normal. Continue current treatment regimen. Routine exercise encouraged. Follow-up with symptoms or concerns. Verbalized understanding and agreed with the plan. (3) Laboratory tests ordered as part of a complete physical exam (CPE): Code(s): Z00.00 - Encounter for general adult medical examination without abnormal findings Category: Medical Plan: Fasting labs ordered as part of a complete physical exam. Advised to fast for at least 10 hours before getting labs drawn. May drink water Verbalized understanding and agreed with treatment plan. Orders: Orders Complete Blood Count Auto Diff Today Z00.00 - Encounter for general adult medical examination without abnormal findings Comprehensive George. Panel Fast Today Z00.00 - Encounter for general adult medical examination without abnormal findings Lipid Panel Today Z00.00 - Encounter for general adult medical examination without abnormal findings TSH reflex Free T4 Today Z00.00 - Encounter for general adult medical examination without abnormal findings UA CC w/rflx Micro + Cult Today Z00.00 - Encounter for general adult medical examination without abnormal findings Vitamin D 25-OH Total Today Z00.00 - Encounter for general adult medical examination without abnormal findings Microalbumin, Random (w Creat) Today Z00.00 - Encounter for general adult medical examination without abnormal findings
[2025-02-03 13:30] VITALS: BP 118/57; PULSE 97; RESP 16; TEMP 36.8; O2SAT 97; BMI 34.6
== END 2025-02-03 13:56 | disposition home or self-care (01) ==
LOC: HO.HMCFM 13:11
PROVIDERS: PCP Nurse Practitioner Family; Visit Provider Nurse Practitioner Family
DX: I10 Essential (primary) hypertension (principal); F41.8 Other specified anxiety disorders; Z00.00 Encounter for general adult medical examination without abnormal findings

== ENCOUNTER → 2025-02-03 13:11 | Outpatient (BNVA) | payer MEDICARE, SELFPAY | PROVIDERS: PCP Nurse Practitioner Family; Visit Provider Nurse Practitioner Family | DX: Z00.01 Encounter for general adult medical examination with abnormal findings (principal); I10 Essential (primary) hypertension; F41.8 Other specified anxiety disorders | CPT/HCPCS: 96127; 99212 ==

== ENCOUNTER 2025-03-07 12:33 | Outpatient (REF) | payer MEDICARE, SELFPAY ==
[2025-03-07 17:41] LABS: Appearance Urine Cloudy; Glucose Urine UA Negative (Negative); PH 5.5 (5.0-9.0); Specific Gravity - Urine 1.015 (1.005-1.025); UMIC TRIGGER UACC YES
[2025-03-07 17:47] LABS: UACC Culture Trigger YES
[2025-03-07 18:00] LABS: MANUAL DIFF FLAG NO
[2025-03-07 18:12] LABS: Hematocrit 36.2 % (37.0-47.0); Hemoglobin 12.1 g/dl (12.0-16.0); Imm Gran Abs Auto 0.02 X10*3/uL (0.00-0.03); Imm Gran Pct Auto 0.3 % (0.0-0.4); Lymphocytes Absolute Auto 2.3 X10*3/uL (1.2-4.9); Mean Corpuscular HGB Conc 33.4 g/dl (31.0-35.0); Mean Corpuscular Hemoglobin 31.0 pg (27.0-33.0); Mean Corpuscular Volume 92.8 fL (80.0-98.0); NRBC Abs Auto 0.000 X10*3/uL (0.0-0.012); NRBC Pct Auto 0.0 /100WBC (0.0-0.2); Platelet Count 265 X10*3/uL (160-400); Red Blood Count 3.90 X10*6/uL (4.20-5.50); White Blood Count 7.7 X10*3/uL (4.8-10.8)
[2025-03-07 18:39] LABS: Alanine Aminotransferase 37 U/L (0-31); Albumin Level 4.4 g/dL (3.5-5.0); Alkaline Phosphatase 84 U/L (39-117); Anion Gap 12 (12-20); Aspartate Amino Transferase 31 U/L (5-31); Blood Urea Nitrogen 13 mg/dL (9-16); Calcium 9.5 mg/dL (8.4-10.2); Carbon Dioxide 27 mmol/L (22-29); Chloride 105 mmol/L (96-108); Cholesterol 248 mg/dL (<200); Estimated Glomerular Filt Rate > 60; HDL Cholesterol 46 mg/dL (>40); Potassium 3.9 mmol/L (3.3-5.1); Sodium 140 mmol/L (135-145); Total Protein 7.8 g/dL (6.5-8.0); Triglycerides 219 mg/dL (<150)
[2025-03-07 18:45] LABS: Microalbum/Creatinine Ratio Ur 15.0 ug/mg cr (<30)
[2025-03-10 08:33] LABS: TS Negative Control Passed; TS Panel A 0; TS Panel B 1; TS Positive Control Passed; TSpotTB Negative (Negative)
== END 2025-03-07 12:34 | disposition home or self-care (01) ==
LOC: HO.WFDLDS 12:33
PROVIDERS: PCP Nurse Practitioner Family; Visit Provider Nurse Practitioner Family
DX: Z00.00 Encounter for general adult medical examination without abnormal findings (principal); Z11.1 Encounter for screening for respiratory tuberculosis; I10 Essential (primary) hypertension; F41.8 Other specified anxiety disorders; R82.90 Unspecified abnormal findings in urine
CPT/HCPCS: 36415; 80053; 80061; 81001; 82043; 82306; 82570; 84443; 85025; 86481; 87086; 96127; 99397

== ENCOUNTER 2025-03-07 12:33 | Outpatient (AMB) | payer MEDICARE, SELFPAY ==
--- NOTE | 2025-03-07 12:44 | MHC.PC.OV ---
Vital Signs 03/07/25 12:51 Height 5 ft 3 in Weight 196 lb BMI 34.7 BP 114/60 Blood Pressure Location Rt brachial Position Sitting Respiration 16 Pulse 71 Pulse Source Pulse Oximeter Temp 97.7 F Temp Source Temporal Artery Scan Pulse Oximetry (%) 96 Oxygen Delivery Method Room Air Intake Visit Reasons: 1 mos CPE Intake Note: Little presents in the office today for her physical. Patient would like a TDap. Will do labs after her appointment. Post menopausal: Yes Allergies lisinopril Adverse Reaction (Mild, Verified 03/07/25 12:59) Cough Medication List - Last Reconciled 03/07/25 by Jignesh He CNP albuterol sulfate 90 mcg/actuation 2 puffs inhalation Q4-6H PRN 1 month fluoxetine 20 mg PO DAILY 90 days hydroxyzine HCl 25 mg PO TID PRN ypjabwqqwn-sninsasfm-xllipjzqv 40-5-25 mg 1 tab PO DAILY Tobacco use date assessed: 03/07/25 Fall risk assessment: No Falls in past year Last assessed Fall Risk: 03/07/25 Dental Screening Dental Screen Date: 03/07/25 Did you have a dental visit in the last 12 months?: Yes Did you have a dental problem in the last 6 months where you did not have access to dental care?: No Was dental information given to patient?: Patient has dentist HPI HPI Comments History of Present Illness Details 74-year-old female presents for an extended physical exam. She admits to taking her medications as prescribed without adverse reactions. She reports controlled anxiety and depressive symptoms. She did not get blood work done for this visit as planned and notes she would do so after this visit. She requests T spot blood work for employment. Acute issue(s) - None Past Medical History - Hypertension, CAD, LVH, dyslipidemia, asthma, COPD, DIEGO (on cpap), obesity, pseudonodules of thyroid, anxiety, and depression Social History - Nonsmoker. Does not vape. Drinks 2-3 beers twice monthly. Denies recreational drug use - Has been making healthy dietary choices. Walks regularly. Generally sleep well Health maintenance - Last eye exam was over a year ago. Declines ophthalmology referral and notes she will establish with Ophthalmology - Last dental visit was 6 months ago - Last Tdap was in 02/20/2017 - She is vaccinated for pneumonia - She has never been vaccinated for shingles. Declines shingles vaccines - Has not been vaccinated for the flu this season; declines vaccination - Last pap smear test was over 11 years ago: Normal. She notes that she had a pap smear test with [facility] software [facility] last year, but not in record. Declines referral for a pap smear test - Last mammogram was in 07/13/2023: Benign findings. She notes that she had mammogram with [facility] software development last year, but not in record. Declines mammogram order - Last colonoscopy was over 10 years ago: Normal. Declines colonoscopy or Cologuard - Last dexa scan was in 05/07/2023: Normal. Declines dexa scan Specialists - Followed by [facility]. Last visit was 2 years ago [facility] Medical History Carpal tunnel syndrome, right Hypertension Carpal tunnel syndrome on both sides Asthma Surgical History History of bladder surgery Hx of hysterectomy History of appendectomy Family History Brother Diabetes Mother Mouth cancer Father Lung cancer Other No family history of mental disorder Social History (Updated 03/07/25 @ 12:50 by Delmy Sloan MA) Household Members: None Both parents involved: No Caregiver staying overnight: No Housing: House Are you a primary resident care associate to a significant other at home: No Do you presently have visiting nurse or other home services: No 75 years or older and lives alone: No Alcohol intake: never Patient Tobacco Use Status: Never used Tobacco e-Cigarette/Vaping Use: Never Used Second Hand Smoke Exposure: No service: No 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 1. Little interest or pleasure in doing things: not at all 2. Feeling down, depressed, or hopeless: not at all 3. Trouble falling or staying asleep, or sleeping too much: not at all 4. Feeling tired or having little energy: not at all 5. Poor appetite or overeating: not at all 6. Feeling bad about yourself - or that you are a failure or have let yourself or your family down: not at all 7. Trouble concentrating on things, such as reading the newspaper or watching television: not at all 8. Moving or speaking so slowly that other people could have noticed. Or the opposite - being so fidgety or restless that you have been moving around a lot more than usual: not at all 9. Thoughts that you would be better off or of hurting yourself in some way: not at all Total score: 0 Depression Screening Interpretation: Negative Depression Screening Done: Yes 06182 - PHQ-9 Billing: Yes Source: Developed by Drs. Lucho London, Randa Keith, Bassem Bonds and colleagues, with an educational vianca from [employer]. Thrive Questionnaire Date Thrive assessed: 03/07/25 I am a: Patient What is your living situation today?: I have a steady place to live Within the past 12 months, did the food you bought not last and you didn't have the money to get more?: I choose not to answer this question Within the past 12 months, did you worry whether your food would run out before you got money to buy more?: Never true Do you have trouble paying for medicines?: No Do you have trouble getting transportation to medical appointments?: Yes Do you have trouble paying your heating and electricity bill?: No Do you have trouble taking care of your child, family member or friend?: No Do you have trouble with day-to-day activities such as bathing, preparing meals, shopping, managing finances, etc.?: No Are you currently unemployed and looking for a job?: No Are you interested in more education?: No Please select the resources that you would like help with: None Currently or been in a relationship where the following occur: I choose not to answer THRIVE Score: 1 AUDIT C Alcohol Use Questionnaire (AUDIT-C) 1. How often do you have a drink containing alcohol?: Never 3. How often do you have six or more drinks on one occasion?: Never Total Score: 0 CORIE-7 AMB Questionnaire CORIE-7 Date CORIE - 7 assessed: 03/07/25 Feeling nervous, anxious, or on edge: 0 = Not at all Not being able to stop or control worryin = Not at all Worrying too much about different things: 0 = Not at all Trouble relaxin = Not at all Being so restless that it is hard to sit still: 0 = Not at all Becoming easily annoyed or irritable: 0 = Not at all Feeling afraid as if something awful might happen: 0 = Not at all Total CORIE-7 score (0-4 normal; 5-9 mild; 10-14 moderate; 15-21 severe): 0 Source: Developed by Drs. Lucho London, Randa Keith, Bassem Bonds and colleagues, with an educational vianca from [employer]. CORIE-7 Assessment Billing CORIE-7 Assessment Tool: CORIE-7 Assessment 72173 ACT Questionnaire In the past 4 weeks, how much of the time did your asthma keep you from getting as much done at work, school or at home?: None of the time During the past 4 weeks, how often have you had shortness of breath?: Not at all During the past 4 weeks, how often did your asthma symptoms wake you up at night or earlier than usual in the morning?: Not at all During the past 4 weeks, how often have you had to use your rescue inhaler or nebulizer medication?: Not at all How would you rate your asthma control during the past 4 weeks?: Not controlled at all Score: 21 Review of Systems Const Details: Denies chills, Denies fatigue, Denies fever(s), Denies headache(s) and Denies weakness HEENT Denies change in vision, Denies dizziness, Denies headache(s), Denies hearing loss, Denies nasal congestion, Denies sinus pain, Denies sinus pressure and Denies sore throat Card Denies chest pain, Denies lightheadedness, Denies dyspnea and Denies other (palpitations) Resp Denies cough, Denies dyspnea and Denies wheezing GI Denies abdominal pain, Denies melena, Denies hematochezia, Denies change in bowel habits, Denies dyspepsia and Denies nausea Denies hematuria and Denies dysuria Musc Denies abnormal gait, Denies myalgias, Denies arthralgias, Denies numbness and Denies tingling Skin/Breast Denies rash, Denies unusual bruising and Denies wounds Neuro Denies abnormal gait, Denies dizziness, Denies headache(s), Denies memory loss, Denies numbness, Denies Sensory deficit (Neuro), Denies tingling and Denies weakness Psych Denies anxiety, Denies depression and Denies memory loss Endo Denies cold intolerance, Denies fatigue, Denies heat intolerance, Denies polydipsia and Denies polyuria Domingo/Lymph Denies easy bleeding and Denies easy bruising Aller/Immun Denies wheezing Physical exam (Primary Care) Vital Signs: Last Vital Signs Temp 97.7 F 03/07/25 12:51 Pulse 71 03/07/25 12:51 Resp 16 03/07/25 12:51 BP 114/60 03/07/25 12:51 Pulse Ox 96 03/07/25 12:51 Oxygen Delivery Method Room Air 03/07/25 12:51 BMI result Body Mass Index 34.7 Tobacco/Smoking Status: Tobacco use Status Tobacco use date assessed 03/07/25 03/07/25 12:50 Patient Tobacco Use Status Never used Tobacco 03/07/25 12:50 e-Cigarette/Vaping Use Never Used 03/07/25 12:50 PHQ-9: PHQ-9 Score PHQ-9: Total score 0 03/07/25 13:31 Depression Screening Interpretation: Negative Thrive Assessment: Date of Thrive Assessment Date Thrive assessed 03/07/25 03/07/25 13:29 Currently or been in a relationship where the following occur: I choose not to answer Const Other: General: no acute distress, well developed, alert and awake Nutritional Appearance: well nourished Orientation/consciousness: patient oriented x3 HENMT Head: Yes normocephalic and Yes atraumatic Ears: hearing grossly normal bilaterally and TM's normal bilaterally General nose exam: Normal external nose present and Normal nares present Mouth: Normal oral and palatal mucosa present and moist mucous membranes Teeth and gingiva: dentition normal Throat: Yes oropharynx normal Eyes Pupils: Equal, round and reactive pupils present and Pupil accommodation reflex normal EOM: EOMs intact bilaterally Neck Neck: Yes normal visual inspection, Yes no lymphadenopathy and Yes trachea midline Thyroid: Thyroid normal Carotids: no bruits Lymphatic: no lymphadenopathy noted Chest Chest palpation & inspection: normal inspection of the chest Resp Effort & Inspection: normal respiratory effort Auscultation: clear to auscultation bilaterally Cardio Rate: regular rate Rhythm: regular rhythm Heart sounds: S1 normal heart sound present, S2 normal heart sound present, no gallops, no murmurs and no rubs Bruits: no abdominal aortic bruits and no carotid bruits GI Palpation (GI): No Abdominal aortic bruit present, Soft to palpation, nontender, No hepatosplenomegaly present and No Rebound tenderness present Auscultation: normal bowel sounds General: Yes no CVA tenderness Back/Spine/Pelvis Back: no CVA tenderness Cervical Spine: cervical ROM normal and No Cervical spine tenderness Thoracic/Lumbar Spine: thoraco-lumbar ROM normal, No pain with thoraco-lumbar ROM, No thoracic spinal tenderness and No lumbar spinal tenderness Skin General: warm and dry. Normal skin color. Normal skin turgor Lesions: no lesions Rashes: no rashes Trauma: no lacerations or abrasions Wounds: no wounds Nails: normal Neuro General: patient oriented x3, gait normal and CN's II-XI intact bilaterally Cranial nerves: Yes Equal, round and reactive pupils present Cognition (Neuro): normal cognition Gait exam (Neuro): Normal gait present Motor exam (neuro): 5/5 motor strength present throughout Sensory Exam: No Sensory deficit (Neuro) Deep tendon reflexes (DTR's): Right patellar reflex intensity grade: 2+ and Left patellar reflex intensity grade: 2+ Extrem General: Yes normal to inspection, No edema and No calf tenderness Psych Appearance: grossly normal Affect: normal affect Attitude: cooperative Thought process: Normal thought process present Coding Level of Care Code Est Pt Prev Care >65y(45699) Diagnoses Normal physical exam Z00.00 Anxiety with depression F41.8 Hypertension I10 Tuberculosis screening Z11.1 Additional Codes CORIE-7 Assessment Billing - CORIE-7 Assessment Tool: CORIE-7 Assessment 25088 ([id number]) PHQ-9 - 16825 - PHQ-9 Billing: Yes ([id number]) Assessment & Plan Assessment & Plan (1) Normal physical exam: Code(s): Z00.00 - Encounter for general adult medical examination without abnormal findings Category: Medical Plan: Normal physical exam of a 74-year-old female. No significant functional limitations noted. Continue current treatment regimen. Healthy diet and routine exercise encouraged. Perform lab workup follow-up for telehealth visit in 2-3 weeks. Return sooner with symptoms or concerns. Verbalized understanding and agreed with the plan. (2) Anxiety with depression: Code(s): F41.8 - Other specified anxiety disorders Category: Medical Plan: She reports controlled anxiety and depressive symptoms. PHQ-9 and CORIE-7 scores are normal. Continue current treatment regimen. Routine exercise encouraged. Follow up with symptoms or concerns. Verbalized understanding and agreed with the plan. (3) Hypertension: Code(s): I10 - Essential (primary) hypertension Category: Medical Plan: Blood pressure is 114/60, within goal of less than 130/80. Continue current treatment regimen. Low sodium diet encouraged. Will continue to monitor. Verbalized understanding and agreed with the plan. (4) Tuberculosis screening: Code(s): Z11.1 - Encounter for screening for respiratory tuberculosis Category: Medical Plan: T-spot ordered. Orders: Orders T Spot TB 03/07/25 Z11.1 - Encounter for screening for respiratory tuberculosis
[2025-03-07 12:51] VITALS: BP 114/60; PULSE 71; RESP 16; TEMP 36.5; O2SAT 96; BMI 34.7
--- OUTSIDE RECORDS SUMMARY | 2025-03-07 13:17 | XMS_ITS | Clinical Summary ---
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 Role Phone Genet Sandoval NP Primary Care Provider [phone] Allergies Active Allergy Reactions Criticality Noted Date [...] coronary artery disease 09/22/2023 Overview (09/22/2023): Brother [place] in 50's Lab test negative for COVID-19 virus 10/15/2020 Elevated LFTs 04/07/2020 Overview (09/22/2023): 03/2020 Asthma 04/06/2020 Overview (09/22/2023): More of an issue in childhood Thyroid nodule 11/10/2017 LVH (left ventricular hypertrophy) 11/09/2017 Overview (09/22/2023): Noted on echo from 11/11; EF 65% Second hand smoke exposure 10/27/2017 Coronary artery disease invo lving [place] coronary artery of [place] heart without angina pectoris 09/01/2016 DIEGO (obstructive [...] and older 05/08/2021 PPD Test 02/07/2019, 8,04/08/2017,08/20,08/29/2015 Synaffix SARS-CoV-2 COVID-19, mRNA, LNP-S, preservative free 09/20/2020,08/30/2020 Pneumococcal conjugate 13 va lent (Prevnar 13, PCV13) 2mo and older 08/29/2015 Pneumococcal polysaccharide 23 valent (Pneumovax 23) 2yo and older 08/03/2014 Tdap Tetanus diptheria acell ular pertussis (Boostrix; Adacel) 7yo and older 02/20/2017 Surgical History Surgery Date Site/Laterality Comments HYSTERECTOMY PROCEDURE: HISTORICAL HYSTERECTOMY BLADDER SUSPENSION PROCEDURE: HISTORICAL BLADDER SUSPENSION CARPAL TUNNEL RELEASE 2019 Right PROCEDURE: [place] NEUROPLASTY &/TRANSPOS MEDIAN NRV CARPAL TUNNE BACK SURGERY 2019 PROCEDURE: HISTORICAL BACK SURGERY Medical History Medical History Date Comments HTN (hypertension) DX:HTN (hyper tension) Depressed DX:Depressed CTS (carpal tunnel syndrome) 12/2017 DX: CTS (carpal tunnel syndrome); COMMENT: fox right sided Family History Medical History Relation Name Comments Other: breathing issues Brother 1 Coronary artery disease Brother 2 s/p [place] No Known Problems Daughter 1 No Known [...] 2) 1998 Cholesterol Screening (Lipid Panel) 07/05/2022 Falls Risk Assessment 07/05/2022 Hepatitis C Screening 07/05/2022 Medicare Annual Wellness Visit 07/05/2022 Social Influencers of Health Screening 07/05/2022 Hypertension/CHF/CAD Annual BMP Blood Test 07/06/2022 RSV Immunization Adult Patients (1 - 1-dose 75+ series) 2023 COVID-19 Vaccine (3 - season) 2024 09/20/2020, 08/30/2020 Depression Screening 07/27/2024 Influenza Vaccine (#1) 2025 , 04/06/2020, 04/08/2017, [...] classified as having normal bone density. The [facility] Department of Internal Medicine recommends using National [...] classified as having normal bone density. The [facility] Department of Internal Medicine recommendsusing National Osteoporosis [...] Maintenance Insurance [employer] MEDICARE Care Teams Inclined Railway Operator Relationship Specialty Start Date End Date Genet Sandoval NP [address] [place] [address] [id number] [place] [address] PCP - General 10/22/22
== END 2025-03-07 13:35 | disposition home or self-care (01) ==
LOC: HO.HMCFM 12:34
PROVIDERS: PCP Nurse Practitioner Family; Visit Provider Nurse Practitioner Family
DX: Z00.00 Encounter for general adult medical examination without abnormal findings (principal); F41.8 Other specified anxiety disorders; I10 Essential (primary) hypertension; Z11.1 Encounter for screening for respiratory tuberculosis

== ENCOUNTER 2025-03-31 10:05 | Outpatient (AMB) | payer MEDICARE, SELFPAY ==
--- NOTE | 2025-03-31 09:51 | A.OFFPC_ITS ---
Intake Visit Reasons: Tele 2-3 wks labs Intake Note: patient here for 2-3 wks Telehealth follow up lab review Medical Lab Technician Required: No Is last menstrual period known: No Post menopausal: No Patient : No Allergies lisinopril Adverse Reaction (Mild, Verified 03/31/25 09:51) Cough Tobacco use date assessed: 03/31/25 Fall risk assessment: No Falls in past year Last assessed Fall Risk: 03/31/25 Dental Screening Dental Screen Date: 03/31/25 Did you have a dental visit in the last 12 months?: No Did you have a dental problem in the last 6 months where you did not have access to dental care?: No Was dental information given to patient?: No HPI HPI Comments History of Present Illness0 Details 74-year-old [place] [facility] review of recent lab results. She admits to taking her medications as prescribed without adverse reactions. She offers no complaints and denies acute symptoms at this time. [facility] Medical History Carpal tunnel syndrome, right Hypertension Carpal tunnel syndrome on both sides Asthma Surgical History History of bladder surgery Hx of hysterectomy History of appendectomy Family History Brother Diabetes Mother Mouth cancer Father Lung cancer Other No family history of mental disorder Social History (Updated 03/07/25 @ 12:50 by Delmy Sloan MA) Household Members: None Both parents involved: No Caregiver staying overnight: No Housing: House Are you a primary post acute care nurse to a significant other at home: No Do you presently have visiting nurse or other home services: No 75 years or older and lives alone: No Alcohol intake: never Patient Tobacco Use Status: Never used Tobacco e-Cigarette/Vaping Use: Never Used Second Hand Smoke Exposure: No Patient : No service: No 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 Lucho London, Randa Keith, Bassem Bonds and colleagues, with an educational vianca from [employer]. Review of Systems Const Details: Denies chills, Denies fatigue, Denies fever(s), Denies headache(s) and Denies weakness Cardiac Denies chest pain, Denies claudication, Denies leg edema, Denies lightheadedness, Denies palpitations, Denies dyspnea, Denies dyspnea on exertion, Denies orthopnea and Denies other (Loss of consciousness) Resp Denies cough, Denies excessive phlegm production, Denies dyspnea, Denies dyspnea on exertion, Denies snoring and Denies wheezing Physical exam (Primary Care) Tobacco/Smoking Status: Tobacco use Status Tobacco use date assessed 03/31/25 03/31/25 09:55 Patient Tobacco Use Status Never used Tobacco 03/31/25 09:55 e-Cigarette/Vaping Use Never Used 03/31/25 09:55 Thrive Assessment: Date of Thrive Assessment Date Thrive assessed 03/07/25 03/31/25 09:55 Const Other: Patient is alert and oriented x 3 Telehealth Telehealth Telehealth Platform: Telephone Location of provider rendering services: practice address Location of patient: address on file Patient Identification confirmed using: Name, : Yes Telehealth method: voice only Patient verbally consented to treatment: Yes Patient verbally consented to billing insurance company: Yes Patient informed of any privacy concerns related to visit: Yes Coding Level of Care Code Tele New Pt Level 3 (02736) Diagnoses Hyperlipidemia E78.5 Elevated fasting glucose R73.01 Vitamin D deficiency E55.9 Elevated ALT measurement R74.01 Hyperbilirubinemia E80.6 Time Spent (min) 15 Assessment & Plan Assessment & Plan (1) Hyperlipidemia: Code(s): E78.5 - Hyperlipidemia, unspecified Category: Medical Plan: Recent triglycerides, total cholesterol, and LDL levels are elevated, 219, 248, and 159 respectively. Advised to limit foods high in saturated fat and avoid foods high in trans fat. Routine exercise encouraged. Fast for 10-12 hours, may drink water, and perform lipid panel blood work 2-3 days before next visit. Follow-up in 2 months for labs review, hypertension, anxiety, and depression. Return sooner with symptoms or concerns. Verbalized understanding and agreed with the plan. (2) Elevated fasting glucose: Code(s): R73.01 - Impaired fasting glucose Category: Medical Plan: Recent fasting glucose is slightly elevated, 101. Healthy diet and routine exercise encouraged. Will recheck fasting glucose and make changes as needed. Verbalized understanding and agreed with the plan. (3) Vitamin D deficiency: Code(s): E55.9 - Vitamin D deficiency, unspecified Category: Medical Plan: Recent vitamin-D level is low, 25.1. Vitamin D3 1000 units daily ordered; advised to take as prescribed. Will recheck vitamin-D level in 2 months. Verbalized understanding and agreed with the plan. (4) Elevated ALT measurement: Code(s): R74.01 - Elevation of levels of liver transaminase levels Category: Medical Plan: Recent ALT level is slightly elevated, 37, total bilirubin level is slightly elevated, 1.1. Likely related to diet. Healthy diet/weight management encouraged. Will recheck liver enzymes in 2 months. Verbalized understanding and agreed with the plan. (5) Hyperbilirubinemia: Code(s): E80.6 - Other disorders of bilirubin metabolism Category: Medical Plan: Plan as above. Orders: Orders Liver Panel 2 Months E80.6 - Other disorders of bilirubin metabolism, R74.01 - Elevation of levels of liver transaminase levels Glucose Fasting 2 Months R73.01 - Impaired fasting glucose Vitamin D 25-OH Total 2 Months E55.9 - Vitamin D deficiency, unspecified Lipid Panel 2 Months E78.5 - Hyperlipidemia, unspecified Medications: New cholecalciferol (vitamin D3) 25 mcg PO DAILY 90 tabs 3RF 90 days
--- OUTSIDE RECORDS SUMMARY | 2025-03-31 10:59 | XMS_ITS | Clinical Summary ---
Author Organization [address] [facility] Address [address] [place] [address] Phone Care Team Providers Care Sampler And Test Preparer Name Role Phone Genet Sandoval NP Primary [...] coronary artery disease 09/22/2023 Overview (09/22/2023): Brother [place] in 50's Lab test negative for COVID-19 virus 10/15/2020 Elevated LFTs 04/07/2020 Overview (09/22/2023): 03/2020 Asthma 04/06/2020 Overview (09/22/2023): More of an issue in childhood Thyroid nodule 11/10/2017 LVH (left ventricular hypertrophy) 11/09/2017 Overview (09/22/2023): Noted on echo from 11/11; EF 65% Second hand smoke exposure 10/27/2017 Coronary artery disease invo [place]ving [place] coronary artery of [place] heart without angina pectoris 09/01/2016 DIE[place] (obstructive [...] and older 05/08/2021 PPD Test 02/07/2019, 8,04/08/2017,08/20,08/29/2015 [employer] SARS-CoV-2 COVID-19, mRNA, LNP-S, preservative free 09/20/2020,08/30/2020 Pneumococcal conjugate 13 va lent (Prevnar 13, PCV13) 2mo and older 08/29/2015 Pneumococcal polysaccharide 23 valent (Pneumovax 23) 2yo and older 08/03/2014 Tdap Tetanus diptheria acell ular pertussis (Boostrix; Adacel) 7yo and older 02/20/2017 Surgical History Surgery Date Site/Laterality Comments HYSTERECTOMY PROCEDURE: HISTORICAL HYSTERECTOMY BLADDER SUSPENSION PROCEDURE: HISTORICAL BLADDER SUSPENSION CARPAL TUNNEL RELEASE 2019 Right PROCEDURE: [place] NEUROPLASTY &/TRANSPOS MEDIAN NRV CARPAL TUNNE BACK SURGERY 2019 PROCEDURE: HISTORICAL BACK SURGERY Medical History Medical History Date Comments HTN (hypertension) DX:HTN (hyper tension) Depressed DX:Depressed CTS (carpal tunnel syndrome) 12/2017 DX: CTS (carpal tunnel syndrome); COMMENT: fox right sided Family History Medical History Relation Name Comments Other: breathing issues Brother 1 Coronary artery disease Brother 2 s/p [place] No Known Problems Daughter 1 No Known [...] Patients (1 - 1-dose 75+ series) 2023 Depression Screening 07/27/2024 COVID-19 Vaccine (3 - 2024- season) 2025 09/20/2020, 08/30/2020 Influenza Vaccine (#1) 2025 , [...] classified as having normal bone density. [facility] Department of Internal Medicine recommends [...] classified as having normal bone density. [facility] Department of Internal Medicine recommendsusing [...] Maintenance Insurance [employer] Care Teams Sampler And Test Preparer Relationship Specialty Start Date End Date Genet Sandoval NP [address] [place] [id number] [id number] [place] [address] PCP - General 10/22/22
== END 2025-03-31 12:17 | disposition home or self-care (01) ==
LOC: HO.HMCFM 10:05
PROVIDERS: PCP Nurse Practitioner Family; Visit Provider Nurse Practitioner Family
DX: E78.5 Hyperlipidemia, unspecified (principal); R73.01 Impaired fasting glucose; E55.9 Vitamin D deficiency, unspecified; R74.01 Elevation of levels of liver transaminase levels; E80.6 Other disorders of bilirubin metabolism